=== PATIENT | female | born 1960 | race Caucasian/White ===

== ENCOUNTER 2016-09-07 12:47 | Inpatient (IN) ==
[2016-09-07] MEDS ORDERED: 0.9 % Sodium Chloride 500 ML IVC ONE (13:31)
[2016-09-07] MEDS ORDERED: methylPREDNISolone 125 MG/2 ML VIAL IVP ONE (13:31)
[2016-09-07] MEDS ORDERED: Ipratropium/Albuterol Neb 3 ML IH ONE (13:31)
[2016-09-07] MEDS ORDERED: GuaiFENesin/Codeine Oral Soln 5 ML UDC PO ONE (13:34)
[2016-09-07 14:18] LABS: Basophils # 0.1 K/mcL (0.0-0.2); Basophils % 0.5 %; Eosinophils % 0.4 %; Hematocrit 42.7 % (35.3-44.9); Hemoglobin 14.4 g/dL (11.5-15.4); Immature Granulocytes % 0.6 % (0-4); Lymphocytes # 1.7 K/mcL (0.6-4.6); Lymphocytes % 15.7 %; Mean Corpuscular HGB Conc 33.7 g/dL (31.6-35.5); Mean Corpuscular Hemoglobin 30.4 pg (28.0-33.3); Mean Corpuscular Volume 90.1 fL (83.0-100.0); Monocytes # 0.5 K/mcL (0.0-1.3); Monocytes % 4.9 %; Neutrophils # 8.6 K/mcL (1.6-8.9); Platelet Count 255 K/mcL (140-400); Red Blood Count 4.74 M/mcL (3.82-4.97); Red Cell Distribution Width 12.3 % (11.5-14.5); Segmented Neutrophils % 77.9 %
[2016-09-07] MEDS ORDERED: 0.9 % Sodium Chloride 500 ML ONE (14:19)
[2016-09-07 14:29] LABS: BUN/Creatinine Ratio 19 (6-26); Blood Urea Nitrogen 17 mg/dL (7-20); Calcium 9.5 mg/dL (8.6-10.8); Carbon Dioxide 28 mEq/L (19-29); Chloride 92 mEq/L (98-109); Glucose 460 mg/dL (70-99); Osmolality,Calculated 292 (280-300); Potassium 4.6 mEq/L (3.5-4.5); Sodium 130 mEq/L (136-145); eGFR For African Americans > 60 (> 60); eGFR For Non-African Americans > 60 (> 60)
[2016-09-07] MEDS ORDERED: Azithromycin 500 MG in D5% in Water 250 ML IVPB ONE (15:11)
[2016-09-07 15:17] LABS: Beta-Hydroxybutyric Acid 0.22 mmol/L (0.02-0.27)
--- NOTE | 2016-09-07 15:28 | Emergency Department Note ---
Disposition Clinical Impression: Community acquired pneumonia, Hyperglycemia Asthma with exacerbation Qualifiers: Asthma severity: unspecified severity Qualified Code(s): J45.901 - Unspecified asthma with (acute) exacerbation Disposition: Admitted As Inpatient Condition: Fair SOB HPI - General Chief Complaint: ED Shortness of Breath/Dyspnea Stated Complaint: SOB x2 weeks Time Seen by Provider: 09/07/16 13:26 Source: patient Mode of arrival: private vehicle Limitations: no limitations Nursing Notes Reviewed: Yes Vital Signs Reviewed: Yes - History of Present Illness Pt Subjective Complaint: shortness of breath, cough, pain with inspiration ( Pain with cough - right ribs) Onset (ago): week(s) (2) Context: recent illness Severity: moderate Consistency/Duration: intermittent, gradually worsening Improves with: other ("not coughing") Worsens with: movement, coughing Known history of: asthma, diabetes Associated symptoms: Reports: pain with inspiration, fever, cough, wheezing, sputum production. Denies: orthopnea, lower extremity pain, polyuria, polydipsia, parasthesias, palpitations, hemoptysis, diaphoresis, nausea/vomiting , syncope, abdominal pain, rash Treatment prior to arrival: bronchodilator Cough present: Yes Cough Description: Involuntary, Productive Cough Frequency: Intermittent Sputum production: Yes Sputum Amount: Small Sputum Color: Yellow - Related Data Home oxygen amount: none Home Medications Medication Instructions Recorded Confirmed Albuterol Sulfate [Ventolin Hfa] 2 puff IH Q4H PRN 09/07/16 09/07/16 Amlodipine [Norvasc] 5 mg PO DAILY 09/07/16 09/07/16 Cyclobenzaprine HCl 10 mg PO TID 09/07/16 09/07/16 [Cyclobenzaprine HCl] HYDROcodone/Acet 7.5/325 mg [[place] 1 tab PO TID PRN 09/07/16 09/07/16 7.5-325 mg] Losartan/Hydrochlorothiazide 1 tab PO DAILY 09/07/16 09/07/16 [Hyzaar 100-25 Tablet] Metformin HCl [Metformin HCl] 1,000 mg PO BID 09/07/16 09/07/16 Paroxetine HCl [Paroxetine] 40 mg PO DAILY 09/07/16 09/07/16 Ropinirole [Requip] 1 mg PO HS 09/07/16 09/07/16 Allergies Allergy/AdvReac Type Severity Reaction Status Date / Time cephalexin [From Keflex] Allergy Hives Verified 09/07/16 13:01 ciprofloxacin [From Cipro] Allergy Hives Verified 09/07/16 13:01 gabapentin Allergy Hives Verified 09/07/16 13:01 All systems ED: reviewed and negative except as stated. Constitutional: Reports: fever, weakness. Denies: chills ENT ED: Denies: ear pain, throat pain, congestion, dysphagia Cardiovascular: Reports: chest pain (right ribs - "under right breast"), dyspnea on exertion. Denies: palpitations, orthopnea, edema, syncope Respiratory: Reports: cough, dyspnea, wheezes, sputum production. Denies: hemoptysis, stridor Gastrointestinal: Denies: abdominal pain, nausea, vomiting, diarrhea Neurological: Denies: headache, weakness Hematological/Lymphatic: Denies: easy bleeding, easy bruising Past Medical History - Past Medical History Attestation: Yes The following information was validated with the patient. Source: patient Medical history: Reports: asthma, diabetes, hypertension Surgical history: Reports: non-contributory Psychiatric history: Reports: no psych history - Social History Smoking Status: Never smoker Alcohol use: Reports: none Drug use: Reports: none Physical Exam - General Limitations: no limitations General appearance: alert, in no apparent distress - Head Head exam: atraumatic, normocephalic, normal inspection - Eye Eye exam: Present: normal appearance, PERRL, EOMI. Absent: scleral icterus, conjunctival injection, periorbital swelling - ENT ENT exam: mucous membranes dry - Neck Neck exam: Present: normal inspection, full ROM, trachea midline. Absent: meningismus, lymphadenopathy - Chest Chest inspection: Present: normal inspection, symmetric chest wall rise, tenderness - Respiratory Respiratory exam: Present: wheezes, other (rhonchi - right base). Absent: respiratory distress, stridor, accessory muscle use, prolonged expiratory phase - Cardiovascular Cardiovascular exam: Present: regular rate, normal rhythm, normal heart sounds - Abdominal Exam Abdominal exam: Present: soft, Non-Tender - Extremities Exam Extremities exam: Present: normal inspection, full ROM. Absent: pedal edema - Neurological Exam Neurological exam: Present: alert, oriented X3, CN II-XII intact, normal gait - Psychiatric Psychiatric exam: Present: normal affect, normal mood - Skin Skin exam: Present: warm, dry, intact, normal color Course Course Narrative: Patient presents for evaluation of cough, congestion, shortness of breath and wheezing. She has been ill for two weeks. She saw her primary care provider last Friday and was started on an antibiotic. She cannot recall which antibiotic she was put on. She was also given steroids, but states that she vomited every time she took them. She had not improved so she went to urgent care and was given a prescription for a different antibiotic. Again, she cannot recall which antibiotic she was given, also more steroids and nausea medicine to prevent vomiting the steroids. She has had no improvement and now has significant right mid rib pain when she is coughing. She states that she has been trying not to cough and has been trying not to take deep breaths because of the pain in the right ribs. On exam, she is tachypneic and hypoxic. O2 sat is 90% on room air. Heart rate and blood pressure are normal. She is afebrile. Labs, x-rays and medications have been ordered. Patient's x-ray shows pneumonia. Blood sugar is elevated, most likely from the steroids and infectious process. She received a DuoNeb treatment which cleared the wheezes and improved airflow, however, her oxygen saturation is still 93-94 % on 2 L. We will admit for further evaluation and treatment. Case was discussed with Dr. Peck. He has seen the patient and agrees with the assessment and plan. - Consultations Consultation #1: Hospitalist has been paged Time: 15:38 Vital Signs Temperature 97.8 F 09/07/16 12:57 Pulse Rate 83 09/07/16 12:57 Respiratory Rate 20 09/07/16 12:57 Blood Pressure 116/77 09/07/16 12:57 O2 Sat by Pulse Oximetry 92 L 09/07/16 12:57 Temperature 97.8 F 09/07/16 13:06 Pulse Rate 78 09/07/16 16:30 Respiratory Rate 16 09/07/16 16:30 Blood Pressure 133/67 09/07/16 16:30 O2 Sat by Pulse Oximetry 93 L 09/07/16 16:30 Oxygen Delivery Oxygen Delivery Nasal Cannula Shortness of Breath/Dyspnea - Medical Records Medical records reviewed: Yes I reviewed the patient's medical records. - Lab Data Lab results reviewed: Yes I reviewed the patient's lab results. Lab results narrative: Laboratory Last Values WBC 11.1 K/mcL (4.3-11.1) 09/07/16 14:07 RBC 4.74 M/mcL (3.82-4.97) 09/07/16 14:07 Hgb 14.4 g/dL (11.5-15.4) 09/07/16 14:07 Hct 42.7 % (35.3-44.9) 09/07/16 14:07 MCV 90.1 fL (83.0-100.0) 09/07/16 14:07 MCH 30.4 pg (28.0-33.3) 09/07/16 14:07 MCHC 33.7 g/dL (31.6-35.5) 09/07/16 14:07 RDW 12.3 % (11.5-14.5) 09/07/16 14:07 Plt Count 255 K/mcL (140-400) 09/07/16 14:07 MPV 10.0 fL (9.4-12.4) 09/07/16 14:07 Immature Gran % 0.6 % (0-4) 09/07/16 14:07 Seg Neutrophils % 77.9 % 09/07/16 14:07 Lymphocytes % 15.7 % 09/07/16 14:07 Monocytes % 4.9 % 09/07/16 14:07 Eosinophils % 0.4 % 09/07/16 14:07 Basophils % 0.5 % 09/07/16 14:07 Neutrophils # 8.6 K/mcL (1.6-8.9) 09/07/16 14:07 Lymphocytes # 1.7 K/mcL (0.6-4.6) 09/07/16 14:07 Monocytes # 0.5 K/mcL (0.0-1.3) 09/07/16 14:07 Eosinophils # 0.0 K/mcL (0.0-0.6) 09/07/16 14:07 Basophils # 0.1 K/mcL (0.0-0.2) 09/07/16 14:07 Sodium 130 mEq/L (136-145) L 09/07/16 14:07 Potassium 4.6 mEq/L (3.5-4.5) H 09/07/16 14:07 Chloride 92 mEq/L (98-109) L 09/07/16 14:07 Carbon Dioxide 28 mEq/L (19-29) 09/07/16 14:07 BUN 17 mg/dL (7-20) 09/07/16 14:07 Creatinine 0.90 mg/dL (0.57-1.11) 09/07/16 14:07 Est GFR ( Amer) > 60 (> 60) 09/07/16 14:07 Est GFR (Non-Af Amer) > 60 (> 60) 09/07/16 14:07 BUN/Creatinine Ratio 19 (6-26) 09/07/16 14:07 Glucose 460 mg/dL (70-99) H 09/07/16 14:07 Calculated Osmolality 292 (280-300) 09/07/16 14:07 Calcium 9.5 mg/dL (8.6-10.8) 09/07/16 14:07 Beta-Hydroxybutyric Acd 0.22 mmol/L (0.02-0.27) 09/07/16 14:07 Result diagrams: 09/07/16 14:07 09/07/16 14:07 Lab Results 09/07/16 09/07/16 Range/Units 14:07 14:07 WBC 11.1 (4.3-11.1) K/mcL RBC 4.74 (3.82-4.97) M/mcL Hgb 14.4 (11.5-15.4) g/dL Hct 42.7 (35.3-44.9) % MCV 90.1 (83.0-100.0) fL MCH 30.4 (28.0-33.3) pg MCHC 33.7 (31.6-35.5) g/dL RDW 12.3 (11.5-14.5) % Plt Count 255 (140-400) K/mcL MPV 10.0 (9.4-12.4) fL Immature Gran % 0.6 (0-4) % Seg Neutrophils % 77.9 % Lymphocytes % 15.7 % Monocytes % 4.9 % Eosinophils % 0.4 % Basophils % 0.5 % Neutrophils # 8.6 (1.6-8.9) K/mcL Lymphocytes # 1.7 (0.6-4.6) K/mcL Monocytes # 0.5 (0.0-1.3) K/mcL Eosinophils # 0.0 (0.0-0.6) K/mcL Basophils # 0.1 (0.0-0.2) K/mcL Sodium 130 L (136-145) mEq/L Potassium 4.6 H (3.5-4.5) mEq/L Chloride 92 L (98-109) mEq/L Carbon Dioxide 28 (19-29) mEq/L BUN 17 (7-20) mg/dL Creatinine 0.90 (0.57-1.11) mg/dL Est GFR ( Amer) > 60 (> 60) Est GFR (Non-Af Amer) > 60 (> 60) BUN/Creatinine Ratio 19 (6-26) Glucose 460 H (70-99) mg/dL Calculated Osmolality 292 (280-300) Calcium 9.5 (8.6-10.8) mg/dL Beta-Hydroxybutyric Acd 0.22 (0.02-0.27) mmol/L - Radiology Data Radiology results reviewed: Yes I reviewed the patient's radiology results. Chest X-Ray 09/07/16 13:32 IMPRESSION: Bibasilar airspace disease, suggestive of pneumonia given patient history. D/ / Noah Monroe MD / Noah Monroe MD Interpreting Provider: Noah Monroe MD
--- NOTE | 2016-09-07 15:37 | Emergency Department Note ---
Disposition Clinical Impression: Community acquired pneumonia, Asthma with exacerbation, Hyperglycemia Disposition: Admitted As Inpatient Condition: Fair Referrals: NO,PCP [Non-Partnered Physician] - Forms: ED Satisfaction Letter SOB HPI - General Chief Complaint: ED Shortness of Breath/Dyspnea Stated Complaint: SOB x2 weeks Time Seen by Provider: 09/07/16 13:26 Source: patient Mode of arrival: private vehicle Limitations: no limitations Nursing Notes Reviewed: Yes Vital Signs Reviewed: Yes - History of Present Illness Severity: moderate Improves with: other ("not coughing") Worsens with: movement, coughing Associated symptoms: Reports: pain with inspiration, cough, wheezing, sputum production. Denies: orthopnea, lower extremity pain, polyuria, polydipsia, parasthesias, palpitations, hemoptysis, diaphoresis, nausea/vomiting, syncope, abdominal pain, rash Treatment prior to arrival: bronchodilator - Related Data Home oxygen amount: none Allergies Allergy/AdvReac Type Severity Reaction Status Date / Time cephalexin [From Keflex] Allergy Hives Verified 09/07/16 13:01 ciprofloxacin [From Cipro] Allergy Hives Verified 09/07/16 13:01 gabapentin Allergy Hives Verified 09/07/16 13:01 Constitutional: Reports: weakness. Denies: fever, chills ENT ED: Denies: ear pain, throat pain, congestion, dysphagia Cardiovascular: Reports: chest pain (right ribs - "under right breast"), dyspnea on exertion. Denies: palpitations, orthopnea, edema, syncope Respiratory: Reports: cough, dyspnea, wheezes, sputum production. Denies: hemoptysis, stridor Gastrointestinal: Denies: abdominal pain, nausea, vomiting, diarrhea Neurological: Denies: headache, weakness Hematological/Lymphatic: Denies: easy bleeding, easy bruising Past Medical History - Past Medical History Medical history: Reports: asthma, diabetes, hypertension Surgical history: Reports: non-contributory Psychiatric history: Reports: no psych history - Social History Smoking Status: Never smoker Alcohol use: Reports: none Drug use: Reports: none Physical Exam - General Limitations: no limitations General appearance: alert, in no apparent distress Course Vital Signs Temperature 97.8 F 09/07/16 12:57 Pulse Rate 83 09/07/16 12:57 Respiratory Rate 20 09/07/16 12:57 Blood Pressure 116/77 09/07/16 12:57 O2 Sat by Pulse Oximetry 92 L 09/07/16 12:57 Temperature 97.8 F 09/07/16 13:06 Pulse Rate 75 09/07/16 14:33 Respiratory Rate 16 09/07/16 14:51 Blood Pressure 130/73 09/07/16 14:33 O2 Sat by Pulse Oximetry 94 L 09/07/16 14:51 Oxygen Delivery Oxygen Delivery Nasal Cannula Shortness of Breath/Dyspnea - [facility] Narrative Medical decision making narrative: I examined this patient and my medical decision-making was reviewed with the CIS COORDINATOR/PA/Advanced Practice Nurse/Resident Physician. I agree with the documented findings, disposition and treatment plan as described except to the extent set forth below. Patient was evaluated by myself and Shira Martell the physician's visitor information assistant, patient has a history of reactive airway disease. She thinks she got pneumonia from work. She is in a health care setting. We will treat her with azithromycin as she has allergies to cephalexin and quinolones. She has not pneumonia on her chest x-ray getting breathing treatments and then will admit. She is in agreement with this plan. - Lab Data Result diagrams: 09/07/16 14:07 09/07/16 14:07 Lab Results 09/07/16 09/07/16 Range/Units 14:07 14:07 WBC 11.1 (4.3-11.1) K/mcL RBC 4.74 (3.82-4.97) M/mcL Hgb 14.4 (11.5-15.4) g/dL Hct 42.7 (35.3-44.9) % MCV 90.1 (83.0-100.0) fL MCH 30.4 (28.0-33.3) pg MCHC 33.7 (31.6-35.5) g/dL RDW 12.3 (11.5-14.5) % Plt Count 255 (140-400) K/mcL MPV 10.0 (9.4-12.4) fL Immature Gran % 0.6 (0-4) % Seg Neutrophils % 77.9 % Lymphocytes % 15.7 % Monocytes % 4.9 % Eosinophils % 0.4 % Basophils % 0.5 % Neutrophils # 8.6 (1.6-8.9) K/mcL Lymphocytes # 1.7 (0.6-4.6) K/mcL Monocytes # 0.5 (0.0-1.3) K/mcL Eosinophils # 0.0 (0.0-0.6) K/mcL Basophils # 0.1 (0.0-0.2) K/mcL Sodium 130 L (136-145) mEq/L Potassium 4.6 H (3.5-4.5) mEq/L Chloride 92 L (98-109) mEq/L Carbon Dioxide 28 (19-29) mEq/L BUN 17 (7-20) mg/dL Creatinine 0.90 (0.57-1.11) mg/dL Est GFR ( Amer) > 60 (> 60) Est GFR (Non-Af Amer) > 60 (> 60) BUN/Creatinine Ratio 19 (6-26) Glucose 460 H (70-99) mg/dL Calculated Osmolality 292 (280-300) Calcium 9.5 (8.6-10.8) mg/dL Beta-Hydroxybutyric Acd 0.22 (0.02-0.27) mmol/L
[2016-09-07] MEDS ORDERED: Naloxone 0.4 MG/ML INJ IVP PRN (18:34)
[2016-09-07] MEDS ORDERED: *HR* HYDROcodone/Acet 5/325 mg TABLET PO PRN (18:34)
[2016-09-07] MEDS ORDERED: Ondansetron ODT 4 MG TAB.RAPDIS SL PRN (18:34)
[2016-09-07] MEDS ORDERED: *HR* Dextrose 50 % in Water (Syg) 50 ML SYRINGE IVP PRN (18:38)
[2016-09-07] MEDS ORDERED: D5% in Water 1,000 ML IV PRN (18:38)
[2016-09-07] MEDS ORDERED: Dextrose Gel 15 GM PO PRN ×2 (18:38)
[2016-09-07] MEDS ORDERED: 0.9 % Sodium Chloride 1,000 ML IVC SCH (18:45)
[2016-09-07] MEDS ORDERED: Albuterol 2.5 MG/3 ML NEBULIZER IH PRN (18:54)
[2016-09-07] MEDS ORDERED: Azithromycin 500 MG in D5% in Water 250 ML IVPB SCH (19:00)
--- NOTE | 2016-09-07 19:06 | Internal Med History&Physical ---
Date of Encounter: 09/07/16 Time of Encounter: 18:54 Assessment and Plan (1) Community acquired pneumonia Current visit: Yes Status: Acute Patient with worsening cough and SOB. CXR with bibasilar opacities consistent with pneumonia. IV fluids 0.9NS at 75mL/hr Given Azithromycin 500mg IVPB in ED. start Doxycycline 100mg IV BID titrate O2 for O2 sat > 92% duoneb treatments QIDR albuterol nebulizer Q2hr PRN (2) Asthma with exacerbation Current visit: Yes Status: Acute Patient reports asthma and denies any diagnosis of COPD, though has a significant smoking history (75 pack-years, quit 11 years ago) She was satting 92% on room air on arrival, satting 92-94% on 2L. Titrate O2 for O2 sat > 92%. Bipap at night. duoneb treatments QIDR and Albuterol nebulizer Q2h PRN. She was not tolerating PO prednisone outpatient because it made her nauseous. Will have her take zofran with the prednisone to offset the nausea. Prednisone 20mg PO daily. Qualifiers: Asthma severity: unspecified severity Qualified Code(s): J45.901 - Unspecified asthma with (acute) exacerbation (3) Type 2 diabetes mellitus Current visit: Yes Status: Acute Blood sugar elevated to 460 in ED, she reported last A1c in 10s Ordered accucheck on arrival to floor as well as [facility] diabetic diet Will start basal insulin at 10u this evening. sliding scale correction dose insulin hypoglycemic protocol Qualifiers: Diabetes mellitus complication status: without complication Diabetes mellitus residential insulin use: without residential use Qualified Code(s): E11.9 - Type 2 diabetes mellitus without complications (4) Hyponatremia Current visit: Yes Status: Acute Sodium 130. IV fluids for hydration. Recheck with AM labs (5) Hypertension Current visit: Yes Status: Acute continue home doses of lisinopril/HCTZ, Qualifiers: Hypertension type: essential hypertension Qualified Code(s): I10 - Essential (primary) hypertension (6) DVT prophylaxis Current visit: Yes Status: Acute encourage ambulation anti-embolic stockings 5,000u Heparin SQ BID Internal Medicine - H&P: HPI Chief complaint: cough, shortness of breath Admitted From: Emergency Dept Plans for Post Hospital Care: Home History of present illness: Ms. Chisholm is a 55 year old female with history of asthma, and type 2 diabetes who presented to the ED today with complaint of productive cough and shortness of breath. She reports this has been going on for 2 weeks. She has visited her PCP and an urgent care and was prescribed antibiotics, oral steroids and breathing treatments, but reports the steroids would make her nauseous. Symptoms have not resolved and were getting worse. She reports she has pain in her right ribs from coughing. Cough has been productive of green and white sputum. She denies any fever, headache, body aches, vomiting, abdominal pain or diarrhea. Her evaluation in the ED was significant for CXR which showed bibasilar opacities suggestive of pneumonia. She was satting 92% on room air on arrival. She was given duoneb treatment, IV fluids, solumedrol and started on Azithromycin. Her glucose is noted to be elevated at 460, she is only on metformin at home for her Type 2 diabetes. On exam, she is alert and oriented, appears comfortable. Lungs with mild expiratory wheezes. Heart with regular rate and rhythm. Mild tenderness over right lateral ribs. Past Med Surg Social Fam HX - Past Medical History Medical history: asthma, diabetes, hypertension Psychiatric history: no psych history - Past Surgical History Surgical History: no surgical history - Social History Smoking Status: Former smoker (75 pack year history) Alcohol use: none Drug use: none Current living situation: Home, With Family - Family History Mother Living Status: Cause of : COPD Father Living Status: Cause of : COPD Internal Medicine - H&P: Meds Albuterol Sulfate [Ventolin Hfa] 2 puff IH Q4H PRN 09/07/16 [History] Amlodipine [Norvasc] 5 mg PO DAILY 09/07/16 [History] Cyclobenzaprine HCl [Cyclobenzaprine HCl] 10 mg PO TID 09/07/16 [History] HYDROcodone/Acet 7.5/325 mg [[place] 7.5-325 mg] 1 tab PO TID PRN 09/07/16 [ History] Losartan/Hydrochlorothiazide [Hyzaar 100-25 Tablet] 1 tab PO DAILY 09/07/16 [ History] Metformin HCl [Metformin HCl] 1,000 mg PO BID 09/07/16 [History] Paroxetine HCl [Paroxetine] 40 mg PO DAILY 09/07/16 [History] Ropinirole [Requip] 1 mg PO HS 09/07/16 [History] Allergies cephalexin [From Keflex] Allergy (Verified 09/07/16 13:01) Hives ciprofloxacin [From Cipro] Allergy (Verified 09/07/16 13:01) Hives gabapentin Allergy (Verified 09/07/16 13:01) Hives All Systems PM: A 10-system review of systems was performed and is negative for pertinent findings except as documented above in the HPI. - Constitutional Constitutional: chills, no fever(s), no night sweats - EENT Eyes: no change in vision, no discharge, no pain, no photophobia Nose, mouth and throat: no dysphagia, no nasal discharge, no neck pain, no sore throat - Cardiovascular Cardiovascular ROS IM: dyspnea, no chest pain, no diaphoresis, no lightheadedness, no palpitations, no syncope - Respiratory Respiratory: cough, dyspnea, wheezing, change in phlegm color, pain with cough - Gastrointestinal Gastrointestinal: no abdominal pain, no diarrhea, no hematemesis, no hematochezia, no melena, no nausea, no vomiting - Genitourinary Genitourinary: no change in urinary stream, no dysuria, no flank pain, no hematuria - Musculoskeletal Musculoskeletal ROS IM: no numbness, no tingling - Integumentary Integumentary IM: no rash, no unusual bruising - Neurological Neurological ROS: no confusion, no convulsions, no focal weakness, no numbness, no tingling, no tremor(s) - Hematologic/Lymphatic Hematologic/Lymphatic: no easy bruising - Constitutional Vitals: Temp Pulse Resp BP Pulse Ox 97.8 F 78 16 133/67 93 L 09/07/16 13:06 09/07/16 16:30 09/07/16 17:44 09/07/16 17:44 09/07/16 16:30 General appearance: Present: A&O X 3, morbidly obese, no acute distress - Head Head exam: Present: atraumatic, normocephalic - Eye Eye exam: Present: PERRL, conjuntiva pink, sclera anicteric Pupils: Present: PERRL - Neck Neck exam general surgery: Present: supple, trachea midline. Absent: lymphadenopathy - Respiratory Respiratory exam: Present: wheezes (bilateral expiratory). Absent: accessory muscle use, rales, rhonchi - Cardiovascular Cardiovascular exam: Present: RRR, +S1, +S2. Absent: diastolic murmur, gallop, rubs, systolic murmur - GI/Abdominal GI/Abdominal exam: Present: normal bowel sounds, soft, no peritoneal signs. Absent: distended, tenderness - Extremities Exam Extremities exam: Present: warm, radial pulses palpable and symetrical. Absent : calf tenderness, cyanotic, pedal edema - Neurological Exam Neurological exam: Present: CN II-XII intact, oriented X3, no focal deficits. Absent: facial droop, speech deficit - Skin Skin exam: Present: dry, intact Internal Med - H&P Results - Labs CBC & Chem 7: 09/07/16 14:07 09/07/16 14:07
[2016-09-07] MEDS: GuaiFENesin/Dextromethorphan TABLET PO SCH (20:32)
[2016-09-07] MEDS: rOPINIRole 1 MG TABLET PO SCH (20:32)
[2016-09-07 20:38] LABS: Hemoglobin A1C 10.2 %
[2016-09-07] MEDS ORDERED: Insulin LISPRO 300 UNITS/3 ML VIAL SQ ONE ×2 (20:41→22:50)
[2016-09-07] MEDS: Ipratropium/Albuterol Neb 3 ML IH SCH ×2 (20:49→23:57)
--- NOTE | 2016-09-07 21:17 | Event Note ---
Date of Encounter: 09/07/16 Time of Encounter: 21:14 Patients and examined. Presents with productive cough for 2 weeks failed to outpatient courses of antibiotics x-ray shows questionable pneumonia. She is afebrile without leukocytosis. When Barbara and culture keep the patient on IV doxycycline because of multiple antibiotic allergies. Uncontrolled diabetes hemoglobin A1 C's 10. Advised patient that she may need insulin she has been on it before. Will start long-acting sliding scale insulin in hospital. Gentle hydration. Expected discharge from the hospital in 48 hours.
[2016-09-07] MEDS ORDERED: Insulin DETEMIR 100 UNIT/ML X5UNITS SQ SCH (21:30)
[2016-09-07] MEDS: Doxycycline 100 MG in 0.9 % Sodium Chloride Mini Bag 100 ML IVPB SCH (22:14)
[2016-09-08] MEDS ORDERED: Insulin LISPRO 300 UNITS/3 ML VIAL SQ ONE ×3 (00:31→18:44)
[2016-09-08] MEDS: Ipratropium/Albuterol Neb 3 ML IH SCH ×4 (04:11→22:39)
[2016-09-08] MEDS: Acetaminophen 325 MG TABLET PO PRN (04:13)
[2016-09-08 04:22] LABS: Basophils % 0.1 %; Hematocrit 41.8 % (35.3-44.9); Hemoglobin 13.9 g/dL (11.5-15.4); Immature Granulocytes % 0.8 % (0-4); Lymphocytes # 1.4 K/mcL (0.6-4.6); Lymphocytes % 11.5 %; Mean Corpuscular HGB Conc 33.3 g/dL (31.6-35.5); Mean Corpuscular Hemoglobin 29.7 pg (28.0-33.3); Mean Corpuscular Volume 89.3 fL (83.0-100.0); Mean Platelet Volume 10.2 fL (9.4-12.4); Monocytes # 0.3 K/mcL (0.0-1.3); Monocytes % 2.5 %; Neutrophils # 10.6 K/mcL (1.6-8.9); Platelet Count 277 K/mcL (140-400); Red Blood Count 4.68 M/mcL (3.82-4.97); Red Cell Distribution Width 12.3 % (11.5-14.5); Segmented Neutrophils % 85.1 %
[2016-09-08 04:41] LABS: BUN/Creatinine Ratio 22 (6-26); Blood Urea Nitrogen 20 mg/dL (7-20); Calcium 9.1 mg/dL (8.6-10.8); Carbon Dioxide 26 mEq/L (19-29); Chloride 97 mEq/L (98-109); Glucose 303 mg/dL (70-99); Osmolality,Calculated 292 (280-300); Potassium 4.1 mEq/L (3.5-4.5); Sodium 134 mEq/L (136-145); eGFR For African Americans > 60 (> 60); eGFR For Non-African Americans > 60 (> 60)
[2016-09-08] MEDS: *HR* Enoxaparin 40 MG/0.4 ML SYRINGE SQ SCH (05:52)
[2016-09-08] MEDS ORDERED: Insulin LISPRO 300 UNITS/3 ML VIAL SQ SCH ×4 (07:30→21:00)
[2016-09-08] MEDS: GuaiFENesin/Dextromethorphan TABLET PO SCH ×2 (08:09→19:47)
[2016-09-08] MEDS: Losartan/HCTZ 50-12.5 TABLET PO SCH (08:09)
[2016-09-08] MEDS: amLODIPine 5 MG TABLET PO SCH (08:10)
[2016-09-08] MEDS: Doxycycline 100 MG in 0.9 % Sodium Chloride Mini Bag 100 ML IVPB SCH ×2 (08:10→22:07)
[2016-09-08] MEDS ORDERED: predniSONE 20 MG TABLET PO SCH (09:00)
[2016-09-08 11:09] LABS: Magnesium 1.6 mg/dL (1.6-2.6); Phosphorous 2.6 mg/dL (2.3-4.7)
[2016-09-08] MEDS: MethylPREDNISolone 40 MG/ML VIAL IVP SCH (12:41)
[2016-09-08] MEDS: Insulin LISPRO 300 UNITS/3 ML VIAL SQ SCH ×3 (12:41→21:48)
--- NOTE | 2016-09-08 12:58 | Internal Med Progress Note ---
Date of Encounter: 09/08/16 Time of Encounter: 09:30 - Assessment and plan (1) Asthma with exacerbation Current Visit: Yes Status: Acute Assessment and plan: Continue aerosol treatment, solumedrol IV. Continue current antibiotic Qualifiers: Asthma severity: unspecified severity Qualified Code(s): J45.901 - Unspecified asthma with (acute) exacerbation Code(s): J45.901 - Unspecified asthma with (acute) exacerbation SNOMED Code(s) : 864360546 (2) Community acquired pneumonia Current Visit: Yes Status: Acute Assessment and plan: Continue current antibiotic add Mucinex Code(s): J18.9 - Pneumonia, unspecified organism SNOMED Code(s): 314815345 (3) Type 2 diabetes mellitus Current Visit: Yes Status: Acute Assessment and plan: Increase Lantus which is insulin sliding scale to high scale Qualifiers: Diabetes mellitus complication status: without complication Diabetes mellitus care home insulin use: without tank terminal gauger use Qualified Code(s): E11.9 - Type 2 diabetes mellitus without complications Code(s): E11.9 - Type 2 diabetes mellitus without complications SNOMED Code(s) : 98181481 (4) Hypoxemia Current Visit: Yes Status: Acute Assessment and plan: Possible secondary to asthma extubation and pneumonia cannot rule out volume overload or diastolic heart failure. Cardiac echo done recently checked BNP discontinual IV fluid, add 1 dose of Lasix Code(s): R09.02 - Hypoxemia SNOMED Code(s): 203004000 - Subjective Interval history: Patient still complained of shortness of breath, productive cough with clear sputum. Patient denies any orthopnea or paroxysmal nocturnal dyspnea. Patient denies any recent weight gain - Constitutional Vitals: Temp Pulse Resp BP Pulse Ox 97.9 F 86 16 136/71 94 L 09/08/16 11:54 09/08/16 11:54 09/08/16 11:54 09/08/16 11:54 09/08/16 11:54 General appearance: Present: A&O X 3, morbidly obese, no acute distress - Head Head exam: Present: atraumatic, normocephalic - Neck Neck exam general surgery: Present: supple, trachea midline. Absent: lymphadenopathy - Respiratory Respiratory exam: Present: decreased breath sounds (More at bilateral lung bases ), prolonged expiratory phase. Absent: accessory muscle use, rales, rhonchi, wheezes - Cardiovascular Cardiovascular exam: Present: RRR, +S1, +S2. Absent: diastolic murmur, gallop, rubs, systolic murmur - GI/Abdominal GI/Abdominal exam: Present: diminished bowel sounds, normal bowel sounds, soft, no peritoneal signs. Absent: tenderness - Extremities Exam Extremities exam: Present: warm, radial pulses palpable and symetrical. Absent : calf tenderness, cyanotic, pedal edema - Skin Skin exam: Present: dry, intact Internal Medicine: Result - Labs CBC & Chem 7: 09/08/16 02:51 09/08/16 02:51 Labs: Short CBC 09/08/16 Range/Units 02:51 WBC 12.5 H (4.3-11.1) K/mcL Hgb 13.9 (11.5-15.4) g/dL Hct 41.8 (35.3-44.9) % Plt Count 277 (140-400) K/mcL Neutrophils # 10.6 H (1.6-8.9) K/mcL BMP 09/08/16 02:51 Sodium 134 L Potassium 4.1 Chloride 97 L Carbon Dioxide 26 BUN 20 Creatinine 0.89 Glucose 303 H Calcium 9.1 Consult Discharge Plan - Plan Referrals: Sherry Weaver, HIGH SCHOOL VICE PRINCIPAL [Primary Care Provider] -
[2016-09-08] MEDS ORDERED: Furosemide 40 MG/4 ML VIAL IVP ONE (13:11)
[2016-09-08] MEDS ORDERED: Azithromycin 500 MG in D5% in Water 250 ML IVPB SCH (16:00)
[2016-09-08] MEDS ORDERED: Insulin Human Regular 10 UNIT in 0.9 % Sodium Chloride 10 ML IV ONE ×2 (16:42→19:06)
[2016-09-08] MEDS ORDERED: Fluconazole 100 MG TABLET PO ONE (16:51)
[2016-09-08] MEDS ORDERED: Insulin Regular, Human 100 UNIT/ML IV ONE (18:45)
[2016-09-08] MEDS: rOPINIRole 1 MG TABLET PO SCH (19:47)
[2016-09-08] MEDS: Insulin DETEMIR 100 UNIT/ML X5UNITS SQ SCH (20:51)
[2016-09-09] MEDS: Insulin LISPRO 300 UNITS/3 ML VIAL SQ SCH ×3 (00:25→21:46)
[2016-09-09] MEDS: Ipratropium/Albuterol Neb 3 ML IH SCH ×4 (04:05→22:37)
[2016-09-09] MEDS: *HR* Enoxaparin 40 MG/0.4 ML SYRINGE SQ SCH (06:32)
[2016-09-09] MEDS: Losartan/HCTZ 50-12.5 TABLET PO SCH (09:08)
[2016-09-09] MEDS: amLODIPine 5 MG TABLET PO SCH (09:08)
[2016-09-09] MEDS: MethylPREDNISolone 40 MG/ML VIAL IVP SCH (09:09)
[2016-09-09] MEDS: Doxycycline 100 MG in 0.9 % Sodium Chloride Mini Bag 100 ML IVPB SCH ×2 (09:09→21:47)
[2016-09-09] MEDS: GuaiFENesin/Dextromethorphan TABLET PO SCH ×2 (09:09→21:47)
[2016-09-09] MEDS ORDERED: Insulin LISPRO 300 UNITS/3 ML VIAL SQ STA (11:50)
--- NOTE | 2016-09-09 14:10 | Electrocardiograph Report ---
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
[2016-09-09] MEDS ORDERED: Furosemide 40 MG/4 ML VIAL IVP ONE (15:36)
[2016-09-09] MEDS ORDERED: Insulin LISPRO 300 UNITS/3 ML VIAL SQ SCH ×2 (16:00→18:28)
--- NOTE | 2016-09-09 18:18 | Internal Med Progress Note ---
Date of Encounter: 09/09/16 Time of Encounter: 18:00 - Assessment and plan (1) Asthma with exacerbation Current Visit: Yes Status: Acute Assessment and plan: Continue aerosol treatment, solumedrol IV. Continue current antibiotic. Discussed with staff home oxygen evaluation. Qualifiers: Asthma severity: unspecified severity Qualified Code(s): J45.901 - Unspecified asthma with (acute) exacerbation Code(s): J45.901 - Unspecified asthma with (acute) exacerbation SNOMED Code(s) : 157212904 (2) Community acquired pneumonia Current Visit: Yes Status: Acute Assessment and plan: Continue current antibiotic Mucinex Code(s): J18.9 - Pneumonia, unspecified organism SNOMED Code(s): 016197423 (3) Type 2 diabetes mellitus Current Visit: Yes Status: Acute Assessment and plan: Increase Lantus again, insulin sliding scale q4 H Qualifiers: Diabetes mellitus complication status: without complication 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 Cardiac echo done recently , add another dose of lasix , awaiting recent cardiac echo Code(s): R09.02 - Hypoxemia SNOMED Code(s): 288573474 - Subjective Interval history: Patient is complaining of sob, dyspnea on mild exertion. blood sugar is still persistently elevated, extremity swelling - Constitutional Vitals: Temp Pulse Resp BP Pulse Ox 98.2 F 69 18 120/72 97 09/09/16 15:21 09/09/16 15:21 09/09/16 16:02 09/09/16 15:21 09/09/16 16:02 General appearance: Present: A&O X 3, morbidly obese, no acute distress - Head Head exam: Present: atraumatic, normocephalic - Respiratory Respiratory exam: Present: decreased breath sounds, tachypnea. Absent: accessory muscle use, rales, rhonchi, wheezes - Cardiovascular Cardiovascular exam: Present: RRR, +S1, +S2. Absent: diastolic murmur, gallop, rubs, systolic murmur - GI/Abdominal GI/Abdominal exam: Present: normal bowel sounds, soft, no peritoneal signs. Absent: tenderness - Extremities Exam Extremities exam: Present: pedal edema (+1 to2 bilateral lower edema ), warm, radial pulses palpable and symetrical. Absent: calf tenderness, cyanotic - Skin Skin exam: Present: dry, intact Internal Medicine: Result - Labs CBC & Chem 7: 09/08/16 02:51 09/08/16 02:51 - Impressions Abnormal Lab Results 09/08/16 09/08/16 09/08/16 18:33 20:59 21:47 POC Glucose 590 H* 433 H* 372 H 09/08/16 09/09/16 09/09/16 23:57 02:22 07:58 POC Glucose 307 H 204 H 219 H 09/09/16 11:15 POC Glucose 357 H Intake & Output 09/06/16 09/07/16 09/08/16 09/09/16 23:59 23:59 23:59 23:59 Intake Total 850 / 850 2760 / 2760 1500 / 1500 Output Total 3100 / 3100 2650 / 2650 Balance 850 / 850 -340 / -340 -1150 / -1150 Weight 127.006 kg 126.6 kg 127.286 kg Consult Discharge Plan - Plan Referrals: Sherry Weaver, TRAFFIC ASSISTANT [Primary Care Provider] -
[2016-09-09] MEDS: Insulin DETEMIR 100 UNIT/ML X5UNITS SQ SCH (21:46)
[2016-09-09] MEDS: rOPINIRole 1 MG TABLET PO SCH (21:47)
[2016-09-10] MEDS: Ipratropium/Albuterol Neb 3 ML IH SCH ×4 (04:17→22:27)
[2016-09-10 05:04] LABS: Basophils % 0.2 %; Eosinophils % 0.2 %; Hematocrit 40.8 % (35.3-44.9); Hemoglobin 13.6 g/dL (11.5-15.4); Immature Granulocytes % 0.9 % (0-4); Lymphocytes # 2.9 K/mcL (0.6-4.6); Lymphocytes % 23.2 %; Mean Corpuscular HGB Conc 33.3 g/dL (31.6-35.5); Mean Corpuscular Volume 89.9 fL (83.0-100.0); Mean Platelet Volume 10.3 fL (9.4-12.4); Monocytes # 1.1 K/mcL (0.0-1.3); Monocytes % 8.5 %; Neutrophils # 8.5 K/mcL (1.6-8.9); Platelet Count 256 K/mcL (140-400); Red Blood Count 4.54 M/mcL (3.82-4.97); Red Cell Distribution Width 12.5 % (11.5-14.5)
[2016-09-10 05:26] LABS: Albumin 3.2 g/dL (3.5-5.0); BUN/Creatinine Ratio 28 (6-26); Blood Urea Nitrogen 21 mg/dL (7-20); Calcium 8.9 mg/dL (8.6-10.8); Carbon Dioxide 26 mEq/L (19-29); Chloride 98 mEq/L (98-109); Glucose 206 mg/dL (70-99); Magnesium 1.8 mg/dL (1.6-2.6); Osmolality,Calculated 291 (280-300); Phosphorous 3.5 mg/dL (2.3-4.7); Sodium 136 mEq/L (136-145); eGFR For African Americans > 60 (> 60); eGFR For Non-African Americans > 60 (> 60)
[2016-09-10 05:28] LABS: Potassium 3.7 mEq/L (3.5-4.5)
[2016-09-10] MEDS: *HR* Enoxaparin 40 MG/0.4 ML SYRINGE SQ SCH (06:01)
[2016-09-10] MEDS: Losartan/HCTZ 50-12.5 TABLET PO SCH (07:59)
[2016-09-10] MEDS: GuaiFENesin/Dextromethorphan TABLET PO SCH ×2 (07:59→20:55)
[2016-09-10] MEDS: MethylPREDNISolone 40 MG/ML VIAL IVP SCH (08:00)
[2016-09-10] MEDS: amLODIPine 5 MG TABLET PO SCH (08:00)
[2016-09-10] MEDS: Insulin LISPRO 300 UNITS/3 ML VIAL SQ SCH ×4 (08:07→22:31)
[2016-09-10] MEDS: Doxycycline 100 MG in 0.9 % Sodium Chloride Mini Bag 100 ML IVPB SCH ×2 (11:43→20:55)
--- NOTE | 2016-09-10 12:17 | ECHO - Doppler Report ---
Echocardiogram Name: Mari Chisholm Date of Study: 09/10/2016 Date: 1960 Ht: 69.0 in Medical Record#: [id number] Age: 55 Wt: 289.0 lb Gender: Female BSA: 2.42 Order #: [id number] Location: [facility] Room #: 3B14 Reading Physician: Lorenzo Du MD, [facility] Zinc Plater: Kristin Doll RDCS, RVT Ordering Physician: Umu Guillaume MD Primary Physician: Sherry Weaver CNP Indications: Possible Diastolic Heart Failure Impressions: Normal left ventricular size and systolic function, LVEF 65%. Mild left ventricular diastolic dysfunction. Normal right ventricular structure and function. Mildly dilated left atrium. No significant valvular dysfunction. Unable to estimate RVSP due to lack of TR jet. Left Ventricular Wall Motion: Rest Echo Findings All wall segments showed normal motion. Findings: Study Quality * Technically adequate exam. ECG Findings * Normal sinus rhythm. Left Ventricle * Normal left ventricular size and systolic function, LVEF 65%. * Normal LV chamber size, wall thickness and function. * Mild left ventricular diastolic dysfunction. Right Ventricle * Normal right ventricular structure and function. Left Atrium * Mildly dilated left atrium. Right Atrium * Normal right atrial size. Aorta * Normally sized aortic root. Pericardium * There is no pericardial effusion present. IVC * The IVC is not well evaluated. Aortic Valve * Trileaflet aortic valve. * Mildly sclerotic aortic valve leaflets. * Normal aortic valve function. Mitral Valve * Mild mitral annular calcification * Normal mitral valve function. Tricuspid Valve * Tricuspid valve not well visualized. * Normal tricuspid valve function. * Unable to estimate RVSP due to lack of TR jet. Pulmonic Valve * Pulmonic valve not well visualized. * Normal pulmonic valve function. History Hypertension Diabetes Measurements: BP: 138/ 79 2D Normal Values RVIDd: 3.40 cm IVSd: .80 cm 0.6 - 1.0 cm LVIDd: 5.20 cm 3.7 - 5.6 cm LVPWd: .80 cm 0.6 - 1.1 cm LVIDs: 3.10 cm 1.5 - 3.6 cm AO: 3.20 cm < 4.0 cm LA volume: 80 Mitral Valve Peak E:.86 m/sec Peak A:1.19 m/sec E/A Ratio:0.7 Updated by Lorenzo Du MD, [facility] on 09/10/2016 12:13:23 PM electronically signed on 09/10/2016 12:14:34 PM with status of Final Wall Motion Milner: 1=Normal, 2=Hypokinesis, 3=Akinesis, 4=Dyskinesis, 5=Aneurysmal, 6=Hyperkinetic, X=Not Visualized (Blank)=Missing
[2016-09-10] MEDS: Acetaminophen 325 MG TABLET PO PRN (17:22)
--- NOTE | 2016-09-10 17:46 | Internal Med Progress Note ---
Date of Encounter: 09/10/16 Time of Encounter: 17:00 - Assessment and plan (1) Asthma with exacerbation Current Visit: Yes Status: Acute Assessment and plan: Continue aerosol treatment, solumedrol IV. Continue current antibiotic. Discussed with pulmonary may need bronchoscopy nothing by mouth after midnight with her findings on x-ray Basilar airspace disease and/or atelectasis with persistent apparent total collapse of the right middle lobe Qualifiers: Asthma severity: unspecified severity Qualified Code(s): J45.901 - Unspecified asthma with (acute) exacerbation Code(s): J45.901 - Unspecified asthma with (acute) exacerbation SNOMED Code(s) : 640334778 (2) Community acquired pneumonia Current Visit: Yes Status: Acute Code(s): J18.9 - Pneumonia, unspecified organism SNOMED Code(s): 221488287 (3) Type 2 diabetes mellitus Current Visit: Yes Status: Acute Assessment and plan: Increase Lantus again, increase insulin sliding scale . 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 term care social worker insulin use: without nursing home use Qualified Code(s): E11.9 - Type 2 diabetes mellitus without complications Code(s): E11.9 - Type 2 diabetes mellitus without complications SNOMED Code(s) : 91155062 (4) Hypoxemia Current Visit: Yes Status: Acute Code(s): R09.02 - Hypoxemia SNOMED Code(s ): 678574027 - Time Spent With Patient 25 - 35 minutes - Subjective Interval history: Patient complains of shortness of breath better then yesterday - Constitutional Vitals: Temp Pulse Resp BP Pulse Ox 98.0 F 67 16 118/71 96 09/10/16 15:30 09/10/16 15:30 09/10/16 15:30 09/10/16 15:30 09/10/16 15:30 General appearance: Present: A&O X 3, morbidly obese, no acute distress - Head Head exam: Present: atraumatic, normocephalic - Respiratory Respiratory exam: Present: decreased breath sounds, CTAB. Absent: accessory muscle use, rales, rhonchi, wheezes - GI/Abdominal GI/Abdominal exam: Present: normal bowel sounds, soft, no peritoneal signs. Absent: distended, tenderness - Extremities Exam Extremities exam: Present: warm, radial pulses palpable and symetrical. Absent : calf tenderness, cyanotic, pedal edema - Skin Skin exam: Present: dry, intact Internal Medicine: Result - Labs CBC & Chem 7: 09/10/16 03:38 09/10/16 03:38 Labs: Short CBC 09/10/16 Range/Units 03:38 WBC 12.7 H (4.3-11.1) K/mcL Hgb 13.6 (11.5-15.4) g/dL Hct 40.8 (35.3-44.9) % Plt Count 256 (140-400) K/mcL Neutrophils # 8.5 (1.6-8.9) K/mcL BMP 09/10/16 03:38 Sodium 136 Potassium 3.7 Chloride 98 Carbon Dioxide 26 BUN 21 H Creatinine 0.74 Glucose 206 H Calcium 8.9 Liver Function 09/10/16 Range/Units 03:38 Albumin 3.2 L (3.5-5.0) g/dL - Impressions Impressions Chest X-Ray 09/10/16 18:29 IMPRESSION: Basilar airspace disease and/or atelectasis with persistent apparent total collapse of the right middle lobe. hysical progression - VTE Documentation of Mechanical Device: Graduated compression elastic hosiery Consult Discharge Plan - Plan Referrals: Sherry Weaver, SHAHID [Primary Care Provider] -
[2016-09-10] MEDS ORDERED: Insulin Human Regular 10 UNIT in 0.9 % Sodium Chloride 10 ML IV ONE (17:51)
[2016-09-10] MEDS: rOPINIRole 1 MG TABLET PO SCH (20:55)
[2016-09-10] MEDS ORDERED: Insulin DETEMIR 100 UNIT/ML X5UNITS SQ SCH (21:00)
[2016-09-11] MEDS: Ipratropium/Albuterol Neb 3 ML IH SCH ×3 (04:12→15:52)
[2016-09-11] MEDS: *HR* Enoxaparin 40 MG/0.4 ML SYRINGE SQ SCH (07:03)
[2016-09-11] MEDS: Insulin LISPRO 300 UNITS/3 ML VIAL SQ SCH ×4 (07:38→21:17)
[2016-09-11] MEDS: MethylPREDNISolone 40 MG/ML VIAL IVP SCH (07:41)
[2016-09-11] MEDS ORDERED: Albuterol 2.5 MG/3 ML NEBULIZER IH ONE (07:52)
[2016-09-11] MEDS ORDERED: Lidocaine Viscous Oral Soln 15 ML SOLUTION MM ONE (07:52)
[2016-09-11] MEDS ORDERED: *HR* FentaNYL (PF) 100 MCG/2 ML VIAL IVP PRN (07:52)
[2016-09-11] MEDS ORDERED: *HR* EPINEPHrine 1 MG/10 ML SYRINGE INTRATRACH PRN (07:52)
[2016-09-11] MEDS ORDERED: *HR* Midazolam HCl 5 MG/5 ML VIAL IVP PRN (07:52)
[2016-09-11] MEDS ORDERED: Tetracaine/Benzocaine/Butamben 200MG/SPRAY (100SPY/BOT) MM ONE (07:52)
--- NOTE | 2016-09-11 07:52 | Pre-Sedation Evaluation ---
Pre-sedation evaluation - Pre-sedation checklist Date of procedure: 09/11/16 Procedure: Bronchoscopy Recent Vitals: Last Vital Signs Temp 98.2 F 09/11/16 06:51 Pulse 70 09/11/16 06:51 Resp 18 09/11/16 06:51 BP 140/87 09/11/16 06:51 Pulse Ox 98 09/11/16 06:51 H&P (including ROS) documented in medical record: Yes Previous reaction to sedatives/anesthetics: No Dietary Status: NPO after Midnight Dentition: dentures removed Possible difficult airway: No ASA Classification *see protocol: CLASS II-Mild systemic disease Plan of Care: Pt appropriate candidate for procedure/moderate/conscious sedation , Risks/benefits of procedure/sedation discussed w/ patient/family
[2016-09-11] MEDS ORDERED: 0.9 % Sodium Chloride 1,000 ML IVC SCH (08:00)
[2016-09-11] MEDS ORDERED: *HR* Midazolam HCl 5 MG/5 ML VIAL IVP ONE (08:10)
[2016-09-11] MEDS ORDERED: *HR* FentaNYL (PF) 100 MCG/2 ML VIAL ONE (08:11)
[2016-09-11] MEDS ORDERED: Lidocaine Viscous Oral Soln 15 ML SOLUTION ONE (08:11)
[2016-09-11 09:39] LABS: Source of Body Fluid RML BAL
--- NOTE | 2016-09-11 09:47 | Internal Med Progress Note ---
Date of Encounter: 09/11/16 Time of Encounter: 09:30 - Assessment and plan (1) Asthma with exacerbation Current Visit: Yes Status: Acute Assessment and plan: Continue aerosol treatment, solumedrol IV. Continue current antibiotic. bronchoscopy done today awaiting the final result, I appreciate pulmonary input Qualifiers: Asthma severity: unspecified severity Qualified Code(s): J45.901 - Unspecified asthma with (acute) exacerbation Code(s): J45.901 - Unspecified asthma with (acute) exacerbation SNOMED Code(s) : 413842936 (2) Community acquired pneumonia Current Visit: Yes Status: Acute Assessment and plan: Continue current antibiotics , awaiting bronchoscopy result Code(s): J18.9 - Pneumonia, unspecified organism SNOMED Code(s): 535562536 (3) Type 2 diabetes mellitus Current Visit: Yes Status: Acute Assessment and plan: It Is still poor bcontroll , Ihad long discussion with counseling patient about lifestyle modification ,staff stated that she is eating many candies. I explained long-term complication micro-and macrovascular complication. 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 Cardiac Echo reviewed, mild diastolic dysfunction Code(s): R09.02 - Hypoxemia SNOMED Code(s): 640306783 - Subjective Interval history: Patient complains of chest wall pain get worse with moving or taking deep breath. Shortness of breath is better - Constitutional Vitals: Temp Pulse Resp BP Pulse Ox 98.0 F 80 18 156/76 98 09/11/16 08:42 09/11/16 08:42 09/11/16 08:42 09/11/16 08:42 09/11/16 08:42 General appearance: Present: morbidly obese, no acute distress - Neck Neck exam general surgery: Present: supple, trachea midline. Absent: lymphadenopathy - Respiratory Respiratory exam: Present: decreased breath sounds (Marked improvement compared to yesterday). Absent: accessory muscle use, rales, rhonchi, wheezes - Cardiovascular Cardiovascular exam: Present: RRR, +S1, +S2. Absent: diastolic murmur, gallop, rubs, systolic murmur - GI/Abdominal GI/Abdominal exam: Present: normal bowel sounds, soft, no peritoneal signs. Absent: distended, tenderness - Extremities Exam Extremities exam: Present: warm, radial pulses palpable and symetrical. Absent : calf tenderness, cyanotic, pedal edema Internal Medicine: Result - Labs CBC & Chem 7: 09/10/16 03:38 09/10/16 03:38 - Impressions Abnormal Lab Results 09/10/16 09/10/16 09/10/16 11:29 16:48 20:08 POC Glucose 341 H 419 H* 268 H 09/10/16 09/11/16 22:26 06:54 POC Glucose 226 H 118 H Intake & Output 09/08/16 09/09/16 09/10/16 09/11/16 23:59 23:59 23:59 23:59 Intake Total 2760 / 2760 2600 / 2600 1060 / 1060 Output Total 3100 / 3100 6200 / 6200 4255 / 4255 700 / 700 Balance -340 / -340 -3600 / -3600 -3195 / -3195 -700 / -700 Weight 126.6 kg 127.286 kg 131.5 kg 131.5 kg - VTE Documentation of Mechanical Device: Graduated compression elastic hosiery Consult Discharge Plan - Plan Referrals: Sherry Weaver, CAR RENTAL AGENCY MANAGER [Primary Care Provider] -
[2016-09-11] MEDS: Doxycycline 100 MG in 0.9 % Sodium Chloride Mini Bag 100 ML IVPB SCH ×2 (09:58→22:55)
[2016-09-11] MEDS: GuaiFENesin/Dextromethorphan TABLET PO SCH ×2 (09:58→21:16)
[2016-09-11] MEDS: Losartan/HCTZ 50-12.5 TABLET PO SCH (10:01)
[2016-09-11] MEDS: Furosemide 40 MG/4 ML VIAL IVP SCH (10:07)
[2016-09-11] MEDS: amLODIPine 5 MG TABLET PO SCH (10:07)
[2016-09-11 10:46] LABS: Appearance of Body Fluid Slightly Hazy (Clear); Volume of Body Fluid 14 mL
--- NOTE | 2016-09-11 13:27 | Pulmonology Consult Note ---
Date of Encounter: 09/11/16 Time of Encounter: 07:00 Assessment and Plan (1) Atelectasis of right lung Current Visit: Yes Status: Suspected Explained to patient about CXR findings and bronchoscopy with all the risks, alternatives, and benefits of the procedure explained to patient and she agreed to have it done. Need to evaluate for any endobronchial lesion or mucus plugs. (2) Asthma with exacerbation Current Visit: Yes Status: Acute Agree with current treatment and outpatient follow up is important. Qualifiers: Asthma severity: unspecified severity Qualified Code(s): J45.901 - Unspecified asthma with (acute) exacerbation History of Present Illness Consult date: 09/11/16 Requesting physician: Umu Guillaume Reason for consult: abnormal CXR/CT Chief complaint: Dyspnea History of present illness: This is a pleasant 55 year female who present to the hospital with dyspnea, which has improved since the admission. Patient has history of asthma and denies any history of copd. Pulmonary was consulted because of the abnormal CXR with evidence collapse of the right middle lobe. She has some cough, but denies any hemoptysis and no significant wheezing. She has some sputum production. She denies any history of LILIA. Past Med Surg Social Fam HX - Past Medical History Medical history: asthma, diabetes, hypertension Psychiatric history: no psych history - Past Surgical History Surgical History: no surgical history - Social History Smoking Status: Former smoker Alcohol use: none Drug use: none - Family History Father Living Status: Cause of : COPD Hx Family Endocrine Disorder: Yes (DM) Mother Living Status: Cause of : COPD Medications and Allergies Albuterol Sulfate [Ventolin Hfa] 2 puff IH Q4H PRN 09/07/16 [History] Amlodipine [Norvasc] 5 mg PO DAILY 09/07/16 [History] Cyclobenzaprine HCl [Cyclobenzaprine HCl] 10 mg PO TID 09/07/16 [History] HYDROcodone/Acet 7.5/325 mg [[place] 7.5-325 mg] 1 tab PO TID PRN 09/07/16 [ History] Losartan/Hydrochlorothiazide [Hyzaar 100-25 Tablet] 1 tab PO DAILY 09/07/16 [ History] Metformin HCl [Metformin HCl] 1,000 mg PO BID 09/07/16 [History] Paroxetine HCl [Paroxetine] 40 mg PO DAILY 09/07/16 [History] Ropinirole [Requip] 1 mg PO HS 09/07/16 [History] Allergies cephalexin [From Keflex] Allergy (Verified 09/07/16 13:01) Hives ciprofloxacin [From Cipro] Allergy (Verified 09/07/16 13:01) Hives gabapentin Allergy (Verified 09/07/16 13:01) Hives All Systems: A 10-system review of systems was performed and is negative for pertinent findings except as documented above in the HPI. Physical Examination Vital Signs: Vital Signs, Last 4 Hours Temp Pulse Resp BP Pulse Ox 09/11/16 11:09 98.1 F 71 18 114/74 95 General appearance: no acute distress Eyes: nonicteric Mallampati (class): 3 Neck: supple, no lymphadenopathy Effort: normal Auscultation: left: clear, right: diminished breath sounds Cardiovascular: regular rate and rhythm Gastrointestinal: normoactive bowel sounds Extremities: no cyanosis Musculoskeletal: no deformities normal mental status, non-focal exam mood appropriate Results - Laboratory Findings CBC and BMP: 09/10/16 03:38 09/10/16 03:38 Abnormal lab findings: Abnormal lab results WBC 12.7 K/mcL (4.3-11.1) H 09/10/16 03:38 BUN 21 mg/dL (7-20) H 09/10/16 03:38 BUN/Creatinine Ratio 28 (6-26) H 09/10/16 03:38 Glucose 206 mg/dL (70-99) H 09/10/16 03:38 POC Glucose 246 (58-89) H 09/11/16 11:08 Hemoglobin A1c 10.2 % (-5.6) H 09/07/16 14:07 Albumin 3.2 g/dL (3.5-5.0) L 09/10/16 03:38 Fluid Appearance Slightly Hazy (Clear) A 09/11/16 09:38 - Diagnostic Findings Chest x-ray: report reviewed, image reviewed - Clinical Findings Intake & Output: Intake & Output 09/10/16 09/11/16 09/11/16 23:59 07:59 15:59 Intake Total 820 / 820 Output Total 850 / 850 700 / 700 Balance -30 / -30 -700 / -700 Weight 131.5 kg Consult Discharge Plan - Plan Referrals: Sherry Weaver, SHAHID [Primary Care Provider] -
[2016-09-11 15:10] LABS: Adenovirus Not Detected (Not Detect); Bordetella Pertussis Not Detected (Not Detect); Chlamydophila pneumoniae Not Detected (Not Detect); Coronavirus 229E Not Detected (Not Detect); Coronavirus HKU1 Not Detected (Not Detect); Coronavirus NL63 Not Detected (Not Detect); Coronavirus OC43 Not Detected (Not Detect); Human Metapneumovirus Not Detected (Not Detect); Human Rhinovirus/Enterovirus Not Detected (Not Detect); Influenza A Subtype 2009 H1 Not Detected (Not Detect); Influenza A Untypeable Not Detected (Not Detect); Influenza B Not Detected (Not Detect); Mycoplasma pneumoniae Not Detected (Not Detect); Parainfluenza Virus 1 Not Detected (Not Detect); Parainfluenza Virus 2 Not Detected (Not Detect); Parainfluenza Virus 3 Not Detected (Not Detect); Parainfluenza Virus 4 Not Detected (Not Detect); Respiratory Syncytial Virus Not Detected (Not Detect)
[2016-09-11] MEDS: *HR* Metformin 500 MG TABLET PO SCH (17:02)
[2016-09-11] MEDS: rOPINIRole 1 MG TABLET PO SCH (21:16)
[2016-09-11] MEDS: Insulin DETEMIR 100 UNIT/ML X5UNITS SQ SCH (21:19)
[2016-09-12] MEDS: Ipratropium/Albuterol Neb 3 ML IH SCH ×3 (00:35→10:32)
[2016-09-12] MEDS: *HR* Enoxaparin 40 MG/0.4 ML SYRINGE SQ SCH (05:29)
[2016-09-12] MEDS: Acetaminophen 325 MG TABLET PO PRN (06:32)
[2016-09-12 06:46] VITALS: BP 110/69
[2016-09-12] MEDS: Furosemide 40 MG/4 ML VIAL IVP SCH (08:15)
[2016-09-12] MEDS: amLODIPine 5 MG TABLET PO SCH (08:15)
[2016-09-12] MEDS: GuaiFENesin/Dextromethorphan TABLET PO SCH (08:15)
[2016-09-12] MEDS: MethylPREDNISolone 40 MG/ML VIAL IVP SCH (08:15)
[2016-09-12] MEDS: *HR* Metformin 500 MG TABLET PO SCH (08:15)
[2016-09-12] MEDS: Losartan/HCTZ 50-12.5 TABLET PO SCH (08:15)
[2016-09-12] MEDS: Insulin LISPRO 300 UNITS/3 ML VIAL SQ SCH (08:16)
[2016-09-12] MEDS: Insulin DETEMIR 100 UNIT/ML X5UNITS SQ SCH (08:20)
--- NOTE | 2016-09-12 08:31 | Discharge Summary ---
Date of Encounter: 09/12/16 Time of Encounter: 07:15 - Discharge Diagnosis (1) Asthma with exacerbation Priority: Primary Status: Acute Qualifiers: Asthma severity: unspecified severity Qualified Code(s): J45.901 - Unspecified asthma with (acute) exacerbation Code(s): J45.901 - Unspecified asthma with (acute) exacerbation SNOMED Code(s) : 030952978 (2) Community acquired pneumonia Priority: Primary Status: Acute Code(s): J18.9 - Pneumonia, unspecified organism SNOMED Code(s ): 515882916 (3) Type 2 diabetes mellitus Priority: Primary Status: Acute Qualifiers: Diabetes mellitus complication status: without complication Diabetes mellitus rn wound care insulin use: without chcf use Qualified Code(s): E11.9 - Type 2 diabetes mellitus without complications Code(s): E11.9 - Type 2 diabetes mellitus without complications SNOMED Code(s) : 75386407 (4) Hypoxemia Priority: Primary Status: Acute Code(s): R09.02 - Hypoxemia SNOMED Code(s): 903078244 - Discharge Medications Prescriptions: Docusate [Colace] 100 mg PO BID PRN #60 capsule PRN Reason: Constipation GuaiFENesin/Dextromethorphan [Mucinex Dm] 1 each PO BID #20 tab.er.12h Insulin DETEMIR [Levemir] 25 unit SQ BID #3 vial Ipratropium/Albuterol Neb [Duoneb] 3 ml IH QIDR PRN #120 inhsol PRN Reason: Shortness Of Breath/Wheezing PredniSONE 20 mg PO DAILY #11 tablet Sulfamethoxazole/Trimeth DS [Bactrim Ds] 1 each PO BID #14 tablet Home Medications: Albuterol Sulfate [Ventolin Hfa] 2 puff IH Q4H PRN 09/07/16 [History] Amlodipine [Norvasc] 5 mg PO DAILY 09/07/16 [History] Cyclobenzaprine HCl 10 mg PO TID 09/07/16 [History] HYDROcodone/Acet 7.5/325 mg [[place] 7.5-325 mg] 1 tab PO TID PRN 09/07/16 [ History] Losartan/Hydrochlorothiazide [Hyzaar 100-25 Tablet] 1 tab PO DAILY 09/07/16 [ History] Metformin HCl 1,000 mg PO BID 09/07/16 [History] Paroxetine HCl [Paroxetine] 40 mg PO DAILY 09/07/16 [History] Ropinirole [Requip] 1 mg PO HS 09/07/16 [History] Docusate [Colace] 100 mg PO BID PRN #60 capsule 09/12/16 [Rx] GuaiFENesin/Dextromethorphan [Mucinex Dm] 1 each PO BID #20 tab.er.12h 09/12/16 [Rx] Insulin DETEMIR [Levemir] 25 unit SQ BID #3 vial 09/12/16 [Rx] Insulin LISPRO [HumaLOG] 0 units SQ QIDAC vial 09/12/16 [Rx] Ipratropium/Albuterol Neb [Duoneb] 3 ml IH QIDR PRN #120 inhsol 09/12/16 [Rx] PredniSONE 20 mg PO DAILY #11 tablet 09/12/16 [Rx] Sulfamethoxazole/Trimeth DS [Bactrim Ds] 1 each PO BID #14 tablet 09/12/16 [Rx] Allergies/Adverse Reactions: Allergies cephalexin [From Keflex] Allergy (Verified 09/07/16 13:01) Hives ciprofloxacin [From Cipro] Allergy (Verified 09/07/16 13:01) Hives gabapentin Allergy (Verified 09/07/16 13:01) Hives Procedures/tests Complete & Pending: Procedures Performed prior 72 hours Category Date Time Status EV echocardiogram Routine Y 09/10/16 18:34 Completed Date of admission: 09/07/16 18:51 Primary care physician: Sherry Weaver CNP Consults: 09/10/16 17:55 Consult to Pulmonology [CONS] Routine Consulting Provider: [facility] Reason for Consult: Right middle lung collapse Call Completed: Yes Discharging clinician: Umu Guillaume - Patient Status Disposition: Home, Self-Care Condition: Good - Discharge Instructions Instructions: Sulfamethoxazole/Trimethoprim (By mouth), Decongestant/ Expectorant (By mouth), Prednisone (By mouth), Asthma (DC), Diabetes Mellitus Type 2 in Adults (DC), Chronic Hypertension (DC), Pneumonia (DC) Follow Up With: Sherry Weaver CNP [Primary Care Provider] - 09/16/16 4:00 pm Additional Instructions: Follow-up was pulmonary in 1-2 weeks - Diet and Activity Activity: resume usual activities as tolerated Diet: diabetic diet Hospital course: Ms. Chisholm is a 55 year old female with history of asthma, and type 2 diabetes who presented to the ED with complaint of productive cough with greenish sputum and shortness of breath. She reports this has been going on for 2 weeks. She has visited her PCP and an urgent care and was prescribed antibiotics, oral steroids and breathing treatments, but reports the steroids would make her nauseous. Symptoms have not resolved and were getting worse. She reports she has pain in her right ribs from coughing. She denied any fever or chills. Her blood sugar was 460 on arrival,She denies any fever,Her evaluation in the ED was significant for CXR which showed bibasilar opacities suggestive of pneumonia. She was satting 92% on room air on arrival. Patient was admitted to the hospital, we started patient on antibiotic, steroids, aerosol treatment and Mucinex. Patient condition was improving slowly. Repeated chest x-ray showed evidence of collapse of right middle lobe. Pulmonary was consulted. Recommended bronchoscopy. Bronchoscopy done ,discussed with the pulmonary, he stated that no evidence of lesions or tumors most likely atelectasis. Her blood sugar was uncontrolled. She required multiple IV bolus of insulin . Continue to adjust her medication gradually. Had long discussion was patient at bedside about need for insulin and about the long-term complication of uncontrolled diabetes. Medication adjusted gradually. Patient was eating a lot of candy from home. Discussed with patient about risk of poor eating habit discussed about lifestyle modification. Patient discharged home in stable condition, patient has sign of volume overload with cardiac echo was done which showed normal ejection fraction mild diastolic dysfunction received the 4 dose of Lasix . Currently euvolemic . Possible secondary to steroid and IV fluid . Need close monitoring of her electrolytes as an outpatient in view of Bactrim . - Time Spent with Patient Total time spent providing and/or coordinating discharge services: Greater than 30 minutes - Constitutional Vitals: Temp Pulse Resp BP Pulse Ox 98.5 F 70 17 110/69 90 L 09/12/16 06:41 09/12/16 06:41 09/12/16 06:41 09/12/16 06:41 09/12/16 06:41 General appearance: Present: morbidly obese, no acute distress - VTE Documentation of Mechanical Device: Graduated compression elastic hosiery
[2016-09-12] MEDS ORDERED: Sulfamethoxazole/Trimeth DS 1 EACH TABLET PO SCH (09:00)
[2016-09-12] MEDS ORDERED: predniSONE 20 MG TABLET PO SCH (09:00)
[2016-09-12 09:28] LABS: BUN/Creatinine Ratio 22 (6-26); Blood Urea Nitrogen 19 mg/dL (7-20); Calcium 8.8 mg/dL (8.6-10.8); Carbon Dioxide 24 mEq/L (19-29); Chloride 96 mEq/L (98-109); Glucose 317 mg/dL (70-99); Osmolality,Calculated 288 (280-300); Potassium 3.3 mEq/L (3.5-4.5); Sodium 132 mEq/L (136-145); eGFR For African Americans > 60 (> 60); eGFR For Non-African Americans > 60 (> 60)
== END 2016-09-12 10:50 | disposition home or self-care (01) | DRG 194 ==
LOC: 3BNU 12:47 → EMEROO 12:47 → 3BNU 18:00
PROVIDERS: ADMIT Internal Medicine; ATTEND Internal Medicine

== ENCOUNTER 2016-12-24 06:31 | Inpatient (IN) ==
[2016-12-24] MEDS ORDERED: Vancomycin 2,000 MG in D5% in Water 500 ML IVPB ONE (06:55)
[2016-12-24] MEDS ORDERED: Albuterol 2.5 MG/3 ML NEBULIZER IH ONE (06:57)
[2016-12-24] MEDS ORDERED: MetroNIDAZOLE 500 MG/100 ML 500 MG/100 ML BAG IVPB ONE (06:57)
[2016-12-24] MEDS ORDERED: Ringers Solution, Lactated 1,000 ML IVC SCH ×2 (07:00→10:00)
[2016-12-24] MEDS ORDERED: Ondansetron 4 MG/2 ML VIAL ONE (07:09)
[2016-12-24] MEDS ORDERED: *HR* FentaNYL (PF) 100 MCG/2 ML VIAL ONE (07:09)
[2016-12-24] MEDS ORDERED: EPHEDrine 50 MG/ML VIAL ONE (07:09)
[2016-12-24] MEDS ORDERED: Dexamethasone 4 MG/ML VIAL ONE (07:09)
[2016-12-24] MEDS ORDERED: Lidocaine -MPF 4% 5 ML AMPUL ONE (07:09)
[2016-12-24] MEDS ORDERED: *HR* Succinylcholine 200 MG/10 ML VIAL IVP ONE (07:09)
[2016-12-24] MEDS ORDERED: *HR* Rocuronium Bromide 50 MG/5 ML VIAL ONE ×3 (07:09→11:53)
[2016-12-24] MEDS ORDERED: *HR* Phenylephrine 10 MG/ML VIAL ONE (07:09)
[2016-12-24] MEDS ORDERED: *HR* Propofol 200 MG/20 ML VIAL IVP ONE (07:09)
[2016-12-24] MEDS ORDERED: Lidocaine -MPF 2% 2 ML VIAL ONE (07:09)
[2016-12-24] MEDS ORDERED: *HR* Midazolam HCl 2 MG/2 ML VIAL ONE ×2 (07:09→08:19)
[2016-12-24] MEDS ORDERED: Lacri-Lube 3.5 GM TUBE ONE (07:11)
--- NOTE | 2016-12-24 07:23 | History & Physical Report ---
Date of Encounter: 12/24/16 Time of Encounter: 07:22 24 Hour HP Update - Instructions Instructions: If the History and Physical is less than 30 days old and was completed prior to A.M. admission and or procedure and has NOT been updated on calendar day of procedure please complete this update prior to performing procedure. - Update Patient reports changes in Medical Condition: No Changes in examination, assessment, or condition: No Changes in Medication: No Preop tests/diagnostics Reviewed: Yes Pre-Op MRSA Screen: Negative Surgery Remains Indicated: Yes Consent for Planned Operative Procedure(s) Verified: Yes - Pre-Operative Checklist Preoperative Checklist Indicated: No Prophylactic Antibiotic Ordered: Yes Home Medications Include Beta Madelin: No Beta Madelin Taken Today (Day of Surgery): No Beta Madelin Taken Yesterday (Day Prior to Surgery): No Is VTE Prophylaxis Indicated?: NO
--- NOTE | 2016-12-24 07:34 | Anesthesia Evaluation PreOp ---
Date of Encounter: 12/24/16 Time of Encounter: 07:31 - Past History Planned Operation: Robotic Sigmoid Colon Resection Cardiac History: HTN, Hyperlipidemia Pulmonary History: Former smoker (Quit > 10 years ago), Asthma, COPD CHICKEN HANGER History: Denies Any Significant HX Other Medical History: Diabetes Type II Anesthesia History: No Prior Anesthetic Complications, Past Anesthesia (C) : No Alcohol Use: none Drug use: none Medications and Allergies Albuterol Sulfate [Ventolin Hfa] 2 puff IH Q4H PRN 09/07/16 [History] Amlodipine [Norvasc] 5 mg PO DAILY 09/07/16 [History] Cyclobenzaprine HCl 10 mg PO TID 09/07/16 [History] HYDROcodone/Acet 7.5/325 mg [[place] 7.5-325 mg] 1 tab PO TID PRN 09/07/16 [ History] Losartan/Hydrochlorothiazide [Hyzaar 100-25 Tablet] 1 tab PO DAILY 09/07/16 [ History] Metformin HCl 1,000 mg PO BID 09/07/16 [History] Paroxetine HCl [Paroxetine] 40 mg PO DAILY 09/07/16 [History] Ropinirole [Requip] 1 mg PO HS 09/07/16 [History] Insulin DETEMIR [Levemir] 25 unit SQ BID #3 vial 09/12/16 [Rx] Insulin LISPRO [HumaLOG] 0 units SQ QIDAC vial 09/12/16 [Rx] Ipratropium/Albuterol Neb [Duoneb] 3 ml IH QIDR PRN #120 inhsol 09/12/16 [Rx] Albuterol Neb [Proventil Neb] 2.5 mg IH TID PRN 10/03/16 [History] Allergies cephalexin [From Keflex] Allergy (Verified 09/07/16 13:01) Hives ciprofloxacin [From Cipro] Allergy (Verified 09/07/16 13:01) Hives gabapentin Allergy (Verified 09/07/16 13:01) Hives Penicillins Allergy (Verified 11/25/16 09:29) See Comments - Meds/Allergy Pre-op Review Medications Reviewed: Yes Allergies Reviewed: Yes Beta Blockers on Current Med List: No Anesthesia Results - Labs Laboratory Tests 11/25/16 11/25/16 12/24/16 09:34 09:34 07:23 WBC 9.5 Hgb 13.6 Hct 42.5 Plt Count 261 Sodium 138 Potassium 3.6 Chloride 100 Carbon Dioxide 29 BUN 12 Creatinine 0.83 POC Glucose 135 H Echo 09/10/16 EF-65% - Imaging EKG: image reviewed (SR) Anesthesia Exam O2 Sat Height 1.75 m Height 1.73 m Weight 130.181 kg Weight 127.913 kg O2 Sat by Pulse Oximetry 96 O2 Sat by Pulse Oximetry 96 Vital Signs Temp Pulse Resp BP Pulse Ox 98.1 F 72 16 141/74 96 12/24/16 07:00 12/24/16 07:00 12/24/16 07:00 12/24/16 07:00 12/24/16 07:00 - HEENT Pupil (Motor): Pupils equal, EOMI - CHICKEN HANGER LOC: Oriented CHICKEN HANGER Motor: Normal RUE, Normal LUE, Normal RLE, Normal LLE, Normal Face CHICKEN HANGER Sensory: Normal: RUE, LUE, RLE, LLE, Face - Cardiac Rhythm: Regular Murmur: None JVD: No Carotid Bruit: No - Pulmonary Breath Sounds: bilateral Clear Respiratory Effort: Symmetrical Anesthesia Assess/Plan ASA Score: 3 ([place]-BMI 42, DM, HTN, COPD) Modified [place] Scale for Level of Consciousness: Cooperative, oriented, and tranquil Anesthetic Plan: General Autologous Blood: Yes Monitoring Plan: Standard Monitors Recovery Plan: PACU
[2016-12-24] MEDS ORDERED: Ketamine *HR* 500 MG/10 ML MDV ONE (09:22)
[2016-12-24] MEDS ORDERED: *HR* Remifentanil 2 MG VIAL IVP ONE ×2 (09:33→11:10)
[2016-12-24] MEDS ORDERED: Ondansetron 4 MG/2 ML VIAL IVP ONE (09:50)
[2016-12-24] MEDS ORDERED: *HR* Labetalol 100 MG/20 ML MDV IVP PRN (09:50)
[2016-12-24] MEDS ORDERED: Neostigmine Methylsulfate 3 MG/3 ML SYRINGE ONE (12:25)
[2016-12-24] MEDS ORDERED: *HR* Labetalol 20 MG/4 ML SYRINGE IVP ONE (12:46)
[2016-12-24] MEDS ORDERED: *HR* HYDROmorphone 2 MG/ML SYRINGE ONE (12:48)
--- NOTE | 2016-12-24 12:53 | Operative Note ---
Date of procedure: 12/24/16 Pre-op diagnosis: Non-resectable rectal polyp Post-op diagnosis: same Procedure: Robot assisted sigmoid colectomy Anesthesia: AMY Surgeon: Magdiel Marquez Tree Deadener: Caro Sahni Specimen: sigmoid colon and rectum, anastamotic rings Condition: stable Disposition: PACU Procedure in Detail: Date of surgery: 12/24/16 Surgical indications: the patient is a 56 year old female who underwent a screening colonoscopy where several polyps were discovered and removed. One polyp was located approximately 20cm from the anal verge (high rectum) and was unable to be removed endoscopically. It was notable for being a tubular adenoma. Due to its size and location the patient is brought to the OR for a robot assisted sigmoid (and rectal) resection. After properly identifying the patient, the patient was brought to the operating room placed in supine position. After proper IV sedation was achieved followed by general endotracheal intubation, the patient's abdomen was prepped and draped in a normal sterile fashion. Of note, the patient was placed in the low lithotomy position and the perianal and perineal space were also prepped and draped. A timeout was performed noting the patient's name and procedure to be performed. A 15 blade scalpel was used to make an incision 1 cm superior and 1 cm to the right of the umbilicus. A 12 mm Visiport was used to dissect through the subcutaneous tissue, external and internal oblique fascia , and transversalis abdominous fascia until the abdomen was entered. A laparoscopic camera was placed through the port which showed no injury to the intra-abdominal organs upon entry. A left upper quadrant 8 mm port, right lateral 8 mm port, and right lower quadrant 12 mm port was then placed under direct camera visualization. The patient was placed in a Trendelenburg position and the da Dottie robot was brought towards the operative field and docked appropriately. Internal visualization demonstrated a very long and tortuous sigmoid colon. The sigmoid colon is a single prominence was grasped and retracted superiorly while the base of the mesentery was scored with Bovie cauterization. Dissection was then carried through the mesentery with Bovie cauterization and utilization of the laparoscopic vessel sealer. The dissection was carried inferiorly towards the presacral space with Bovie cauterization as well, however given the patient's body habitus and morbid obesity further visualization was made difficult. The decision was made to go ahead and transect across the sigmoid colon above the level of the sacral prominence with a robotic stapling device. Of note; the 12 mm port had to be upsized to a 15 mm port. After this was performed further dissection was performed by dissecting the lateral sidewall attachments of the distal descending colon and sigmoid colon from their normal resting position. This allowed for better medial retraction. Due to the limited visualization from to the patient's body habitus the decision was made to convert this to the open procedure by desuflating the abdomen and making an incision from the pubic symphysis extending superiorly to just below the umbilicus along the midline for a length of approximately 8 cm. Dissection was carried through the subcutaneous tissue until the rectus fascia was encountered and incised. An Eamon protection device was placed in the wound and a Bookwalter was brought to the operative field to provide retraction. The sigmoid was examined and retracted out of the wound and dissection posteriorly around the sigmoid down to the rectosigmoid junction was performed with a handheld LigaSure. Dissection was also performed to get down into the pelvis and around the rectum. The mesentery was also scored laterally with Bovie cauterization. A contour stapler was then placed across the rectum and transection was performed without difficulty. Opening of the specimen on a separate table did not show evidence of the location of the non-resectable colon polyp. Further visualization of the rectal stump was performed and further dissection circumferentially around the rectum to clear away the mesentery was performed by blunt dissection and Bovie cauterization until the "blue dye and "could be identified along the serosa. The staple line was opened at the rectal stump to ensure visualization of the nonresectable polyp, which was noted. The polyp was noted to be anterior in location in the rectum and it appeared to be much lower in the rectum than initially suspected by the patient's pre surgical CAT scan. The meso rectum was cleared away from the surrounding rectum and the contour stapler was once again placed across the rectum just below the polyp and transection was performed. Complete resection of the specimen was verified. The decision was made to prepare the distal colonic stump for anastomosis. The staple line was transected with Bovie cauterization along the distal colonic stump and sizers were placed through the opening. A 29-[place] EEA stapler was brought onto the operative field and a 2-0 Prolene pursestring was created at the distal colonic opening. The anvil was then placed through the entertomy and the pursestring was tied. The EEA stapler was placed through the anus and the male end was extruded at the level of the rectal stump staple line. The anvil was connected in the EEA stapler which was then retracted and fired without difficulty. Visualization noted 2 intact anastomotic rings, which were submitted to pathology and the pelvis was filled with normal saline solution above the staple line while the distal colon was clamped. Air was placed through the anus to insufflate the rectum and no evidence of a leak was identified. The fluid was then suctioned and the pelvis was copiously irrigated with normal saline solution and then removed. The decision was made to go ahead and complete the surgical procedure by placing Seprafilm within the wound and reapproximating the fascia with 2 #1 non looped PDS sutures. The subcutaneous tissue was reapproximated with interrupted 2-0 Vicryl sutures and the epidermal and dermal layers for the remaining incisions were closed with jess. Needle, sponge, and instrument counts were correct 2 and the incisions were covered with 2 x 2's and 4 x 4's. The patient was aroused from IV sedation, extubated in the operating room without complication, and transported to the recovery room stable condition.
[2016-12-24] MEDS ORDERED: Naloxone 0.4 MG/ML INJ IVP PRN (13:04)
[2016-12-24] MEDS: *HR* HYDROmorphone (PF) 1 MG/ML SYRINGE IVP PRN ×4 (13:15→21:02)
--- NOTE | 2016-12-24 13:55 | Anesthesia Evaluation Post Op ---
Date of Encounter: 12/24/16 Time of Encounter: 13:54 - Vital Signs Vital Signs: Vital Signs/O2 Sat, Most Current Temp Pulse Resp BP Pulse Ox 97.8 F 70 17 141/83 92 12/24/16 13:31 12/24/16 13:41 12/24/16 13:41 12/24/16 13:41 12/24/16 13:41 - Lungs Lungs: Clear Ascult./Percussion - Airway Airway: Non-obstructed - Cardiovascular Regular Rate - Mental Status Mental Status: Alert & Oriented, Answers Appropriately - Pain Pain Scale: 4 (sleeping) Pain Scale used: Numeric (1 - 10) - Hydration Hydration: NPO, Mohamud catheter - Discharge PostOp Status: Transfer Patient to floor
[2016-12-24] MEDS: 0.9 % Sodium Chloride 1,000 ML IVC SCH (15:39)
[2016-12-24] MEDS: MetroNIDAZOLE 500 MG/100 ML 500 MG/100 ML BAG IVPB SCH (15:40)
[2016-12-25] MEDS: MetroNIDAZOLE 500 MG/100 ML 500 MG/100 ML BAG IVPB SCH ×3 (00:20→15:59)
[2016-12-25] MEDS: Ondansetron 4 MG/2 ML VIAL IVP PRN (00:20)
[2016-12-25] MEDS: 0.9 % Sodium Chloride 1,000 ML IVC SCH ×2 (03:20→15:59)
[2016-12-25] MEDS: *HR* HYDROmorphone (PF) 1 MG/ML SYRINGE IVP PRN ×4 (03:22→21:24)
[2016-12-25 05:47] LABS: Basophils % 0.1 %; Eosinophils % 0.1 %; Hematocrit 37.4 % (35.3-44.9); Immature Granulocytes % 0.3 % (0-4); Lymphocytes # 1.5 K/mcL (0.6-4.6); Lymphocytes % 10.9 %; Mean Corpuscular HGB Conc 32.1 g/dL (31.6-35.5); Mean Corpuscular Hemoglobin 29.9 pg (28.0-33.3); Mean Corpuscular Volume 93.3 fL (83.0-100.0); Mean Platelet Volume 9.6 fL (9.4-12.4); Monocytes # 1.2 K/mcL (0.0-1.3); Monocytes % 8.7 %; Platelet Count 223 K/mcL (140-400); Red Blood Count 4.01 M/mcL (3.82-4.97); Red Cell Distribution Width 12.7 % (11.5-14.5); Segmented Neutrophils % 79.9 %
[2016-12-25 06:03] LABS: Calcium 8.4 mg/dL (8.6-10.8); Carbon Dioxide 28 mEq/L (19-29); Chloride 106 mEq/L (98-109); Glucose 184 mg/dL (70-99); Magnesium 1.5 mg/dL (1.6-2.6); Phosphorous 3.6 mg/dL (2.3-4.7); Potassium 3.6 mEq/L (3.5-4.5); Sodium 139 mEq/L (136-145); eGFR For African Americans > 60 (> 60); eGFR For Non-African Americans > 60 (> 60)
[2016-12-25 06:22] LABS: BUN/Creatinine Ratio 9 (6-26); Blood Urea Nitrogen 8 mg/dL (7-20); Osmolality,Calculated 291 (280-300)
[2016-12-25] MEDS: Pantoprazole 40 MG VIAL IVP SCH (08:06)
[2016-12-25] MEDS ORDERED: *HR* Dextrose 50 % in Water (Syg) 50 ML SYRINGE IVP PRN (10:13)
[2016-12-25] MEDS ORDERED: D5% in Water 1,000 ML IVC PRN (10:13)
[2016-12-25] MEDS ORDERED: Dextrose Gel 15 GM PO PRN ×2 (10:13)
--- NOTE | 2016-12-25 10:16 | General Surgery Progress Note ---
Date of Encounter: 12/25/16 Time of Encounter: 10:14 - Assessment and Plan (1) Rectal polyp Current Visit: Yes Status: Acute POD #1 Robot assisted sigmoid colectomy with Dr. Marquez NPO except ice chips while awaiting return of bowel function IV fluids Supportive care/pain control Increase activity as tolerated IS every 1 hour while awake PPI therapy daily Discontinue cruz catheter AM labs (2) Type 2 diabetes mellitus Current Visit: No Status: Chronic Added low sliding scale insulin coverage Will monitor and adjust as necessary Qualifiers: Diabetes mellitus complication status: without complication Diabetes mellitus retirement insulin use: without terminal worker use Qualified Code(s): E11.9 - Type 2 diabetes mellitus without complications (3) DVT prophylaxis Current Visit: No Status: Acute Heparin 5,000 units SQ twice daily for DVT prophylaxis Subjective Patient reports: still having pain (surgical), no flatus, no bowel movement, afebrile Objective Vital Signs - Last 8 Hours Temp Pulse Resp BP Pulse Ox 12/25/16 06:46 98.3 F 88 16 127/67 93 12/25/16 03:35 98.8 F 86 16 133/74 94 Intake and Output 12/24/16 12/25/16 12/25/16 23:59 07:59 15:59 Intake Total 100 / 100 1100 / 1100 Output Total 500 / 500 1190 / 1190 Balance -400 / -400 -90 / -90 Intake: IV Fluids 100 / 100 1100 / 1100 0.9 % Sodium Chloride 1, 1000 / 1000 000 ML @ 100 mls/hr IVC . Q10H [facility] Rx#:[id number] Flagyl 500 MG/100 ML 500 100 / 100 100 / 100 mg In 100 ml @ 100 mls/hr IVPB Q8HR [facility]ATT Rx#: [id number] Oral 0 / 0 0 / 0 Output: Catheter 500 / 500 1190 / 1190 Other: Meal NPO NPO Blood Glucose* 214 162 - General physical appearance well developed, well nourished, no distress - Eyes normal ocular movement - ENT normal mucosa, atraumatic, normocephalic - Neck Neck exam: trachea midline - Respiratory normal respiratory effort, clear to auscultation - Cardiovascular Cardiovascular exam: Present: RRR - Abdomen Abdomen: Present: soft, tender (expected post-operative tenderness) - Incision Incision: Present: clean and dry, intact - Genitourinary other (cruz catheter to SD with clear, yellow urine noted) - Neurologic CN 2-12 grossly intact - Psychiatric oriented to time, oriented to person, oriented to place, speech is normal, memory intact - Labs 12/25/16 05:37 12/25/16 05:37 Diabetes panel 12/25/16 Range/Units 05:37 Sodium 139 (136-145) mEq/L Potassium 3.6 (3.5-4.5) mEq/L Chloride 106 (98-109) mEq/L Carbon Dioxide 28 (19-29) mEq/L BUN 8 (7-20) mg/dL Creatinine 0.87 (0.57-1.11) mg/dL Glucose 184 H (70-99) mg/dL Calcium 8.4 L (8.6-10.8) mg/dL Calcium panel 12/25/16 Range/Units 05:37 Calcium 8.4 L (8.6-10.8) mg/dL Phosphorus 3.6 (2.3-4.7) mg/dL Pituitary panel 12/25/16 Range/Units 05:37 Sodium 139 (136-145) mEq/L Potassium 3.6 (3.5-4.5) mEq/L Chloride 106 (98-109) mEq/L Carbon Dioxide 28 (19-29) mEq/L BUN 8 (7-20) mg/dL Creatinine 0.87 (0.57-1.11) mg/dL Glucose 184 H (70-99) mg/dL Calcium 8.4 L (8.6-10.8) mg/dL Adrenal panel 12/25/16 Range/Units 05:37 Sodium 139 (136-145) mEq/L Potassium 3.6 (3.5-4.5) mEq/L Chloride 106 (98-109) mEq/L Carbon Dioxide 28 (19-29) mEq/L BUN 8 (7-20) mg/dL Creatinine 0.87 (0.57-1.11) mg/dL Glucose 184 H (70-99) mg/dL Calcium 8.4 L (8.6-10.8) mg/dL - VTE Documentation of Mechanical Device: Intermittent pneumatic compression device Consult Discharge Plan - Plan Referrals: Magdiel Marquez MD [Partnered Physician] - 01/08/17 11:30 am - Attending Attestation I examined this patient and my medical decision-making was reviewed with the SHOP LABORER/PA/Advanced Practice Nurse/Resident Physician. I agree with the documented findings, disposition and treatment plan as described except to the extent set forth below. I reviewed the physical exam and assessment and agree with the above. Return of bowel function. Continue with ice chips and IV fluids for now. Patient currently attempting to void status post Cruz removal.
[2016-12-25] MEDS: Insulin LISPRO 300 UNITS/3 ML VIAL SQ SCH ×2 (13:32→18:00)
[2016-12-25] MEDS: *HR* Heparin 5,000 UNIT/ML VIAL SQ SCH ×2 (14:10→17:38)
[2016-12-26] MEDS: Insulin LISPRO 300 UNITS/3 ML VIAL SQ SCH ×4 (00:42→18:51)
[2016-12-26] MEDS: 0.9 % Sodium Chloride 1,000 ML IVC SCH ×2 (03:54→18:32)
[2016-12-26] MEDS: *HR* HYDROmorphone (PF) 1 MG/ML SYRINGE IVP PRN ×5 (04:19→23:53)
[2016-12-26 04:52] LABS: Basophils % 0.2 %; Eosinophils # 0.1 K/mcL (0.0-0.6); Eosinophils % 0.6 %; Hematocrit 34.6 % (35.3-44.9); Hemoglobin 10.9 g/dL (11.5-15.4); Immature Granulocytes % 0.3 % (0-4); Lymphocytes # 1.5 K/mcL (0.6-4.6); Lymphocytes % 11.8 %; Mean Corpuscular HGB Conc 31.5 g/dL (31.6-35.5); Mean Corpuscular Volume 95.3 fL (83.0-100.0); Monocytes # 1.5 K/mcL (0.0-1.3); Monocytes % 11.8 %; Neutrophils # 9.3 K/mcL (1.6-8.9); Platelet Count 210 K/mcL (140-400); Red Blood Count 3.63 M/mcL (3.82-4.97); Red Cell Distribution Width 12.7 % (11.5-14.5); Segmented Neutrophils % 75.3 %
[2016-12-26 04:59] LABS: BUN/Creatinine Ratio 9 (6-26); Blood Urea Nitrogen 7 mg/dL (7-20); Calcium 8.3 mg/dL (8.6-10.8); Carbon Dioxide 26 mEq/L (19-29); Chloride 106 mEq/L (98-109); Glucose 154 mg/dL (70-99); Osmolality,Calculated 291 (280-300); Potassium 3.1 mEq/L (3.5-4.5); Sodium 140 mEq/L (136-145); eGFR For African Americans > 60 (> 60); eGFR For Non-African Americans > 60 (> 60)
[2016-12-26] MEDS: *HR* Heparin 5,000 UNIT/ML VIAL SQ SCH ×2 (05:59→18:06)
[2016-12-26] MEDS: Pantoprazole 40 MG VIAL IVP SCH (07:56)
[2016-12-26] MEDS ORDERED: Potassium Chloride 40 MEQ, Lidocaine 1% 2 ML in D5% in Water 500 ML IVPB ONE (13:47)
--- NOTE | 2016-12-26 13:50 | General Surgery Progress Note ---
Date of Encounter: 12/26/16 Time of Encounter: 13:48 - Assessment and Plan (1) Rectal polyp Current Visit: Yes Status: Acute POD #2 Robot assisted sigmoid colectomy with Dr. 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 insulin use: without group home use Qualified Code(s): E11.9 - Type 2 diabetes mellitus without complications (3) DVT prophylaxis Current Visit: No Status: Acute Heparin 5,000 units SQ twice daily for DVT prophylaxis (4) Hypokalemia Current Visit: Yes Status: Acute Replace potassium Repeat am labs Subjective Patient reports: no new complaints, feels better, still having pain, pain is less, voiding w/o difficulty, no flatus, no bowel movement, afebrile Objective Vital Signs - Last 8 Hours Temp Pulse Resp BP Pulse Ox 12/26/16 11:11 98.2 F 85 18 147/70 92 12/26/16 08:08 93 Intake and Output 12/25/16 12/26/16 12/26/16 23:59 07:59 15:59 Intake Total 360 / 360 1000 / 1000 0 / 0 Output Total 700 / 700 700 / 700 300 / 300 Balance -340 / -340 300 / 300 -300 / -300 Intake: IV Fluids 1000 / 1000 0.9 % Sodium Chloride 1, 1000 / 1000 000 ML @ 100 mls/hr IVC . Q10H [facility] Rx#:[id number] Oral 360 / 360 0 / 0 0 / 0 Output: Urine 700 / 700 700 / 700 300 / 300 Other: Meal npo NPO Percent of Meal Consumed 0% Blood Glucose* 169 158 138 - General physical appearance well developed, well nourished, no distress - Eyes normal ocular movement - ENT normal mucosa, atraumatic, normocephalic - Neck Neck exam: trachea midline - Respiratory normal respiratory effort, clear to auscultation - Cardiovascular Cardiovascular exam: Present: RRR - Abdomen Abdomen: Present: bowel sounds present, soft, tender (expected post-operative tenderness) - Incision Incision: Present: clean and dry, intact - Neurologic CN 2-12 grossly intact - Psychiatric oriented to time, oriented to person, oriented to place, speech is normal, memory intact - Labs 12/26/16 03:40 12/26/16 03:40 Diabetes panel 12/26/16 Range/Units 03:40 Sodium 140 (136-145) mEq/L Potassium 3.1 L (3.5-4.5) mEq/L Chloride 106 (98-109) mEq/L Carbon Dioxide 26 (19-29) mEq/L BUN 7 (7-20) mg/dL Creatinine 0.79 (0.57-1.11) mg/dL Glucose 154 H (70-99) mg/dL Calcium 8.3 L (8.6-10.8) mg/dL Calcium panel 12/26/16 Range/Units 03:40 Calcium 8.3 L (8.6-10.8) mg/dL Pituitary panel 12/26/16 Range/Units 03:40 Sodium 140 (136-145) mEq/L Potassium 3.1 L (3.5-4.5) mEq/L Chloride 106 (98-109) mEq/L Carbon Dioxide 26 (19-29) mEq/L BUN 7 (7-20) mg/dL Creatinine 0.79 (0.57-1.11) mg/dL Glucose 154 H (70-99) mg/dL Calcium 8.3 L (8.6-10.8) mg/dL Adrenal panel 12/26/16 Range/Units 03:40 Sodium 140 (136-145) mEq/L Potassium 3.1 L (3.5-4.5) mEq/L Chloride 106 (98-109) mEq/L Carbon Dioxide 26 (19-29) mEq/L BUN 7 (7-20) mg/dL Creatinine 0.79 (0.57-1.11) mg/dL Glucose 154 H (70-99) mg/dL Calcium 8.3 L (8.6-10.8) mg/dL - VTE Documentation of Mechanical Device: Intermittent pneumatic compression device Consult Discharge Plan - Plan Referrals: Magdiel Marquez MD [Partnered Physician] - 01/08/17 11:30 am - Attending Attestation I examined this patient and my medical decision-making was reviewed with the MILLINERY COPYIST/PA/Advanced Practice Nurse/Resident Physician. I agree with the documented findings, disposition and treatment plan as described except to the extent set forth below. I reviewed the physical exam and assessment and I agree with the above plan.
[2016-12-27] MEDS: Insulin LISPRO 300 UNITS/3 ML VIAL SQ SCH ×4 (01:56→21:20)
[2016-12-27 03:31] LABS: Basophils % 0.3 %; Eosinophils # 0.2 K/mcL (0.0-0.6); Eosinophils % 1.6 %; Hematocrit 32.5 % (35.3-44.9); Hemoglobin 10.3 g/dL (11.5-15.4); Immature Granulocytes % 0.5 % (0-4); Lymphocytes # 1.6 K/mcL (0.6-4.6); Lymphocytes % 13.8 %; Mean Corpuscular HGB Conc 31.7 g/dL (31.6-35.5); Mean Corpuscular Hemoglobin 30.2 pg (28.0-33.3); Mean Corpuscular Volume 95.3 fL (83.0-100.0); Mean Platelet Volume 10.3 fL (9.4-12.4); Monocytes # 1.1 K/mcL (0.0-1.3); Monocytes % 9.5 %; Neutrophils # 8.6 K/mcL (1.6-8.9); Platelet Count 196 K/mcL (140-400); Red Blood Count 3.41 M/mcL (3.82-4.97); Red Cell Distribution Width 12.7 % (11.5-14.5); Segmented Neutrophils % 74.3 %
[2016-12-27 03:39] LABS: BUN/Creatinine Ratio 10 (6-26); Blood Urea Nitrogen 7 mg/dL (7-20); Calcium 8.6 mg/dL (8.6-10.8); Carbon Dioxide 26 mEq/L (19-29); Chloride 107 mEq/L (98-109); Glucose 155 mg/dL (70-99); Osmolality,Calculated 289 (280-300); Potassium 3.1 mEq/L (3.5-4.5); Sodium 139 mEq/L (136-145); eGFR For African Americans > 60 (> 60); eGFR For Non-African Americans > 60 (> 60)
[2016-12-27] MEDS: *HR* Heparin 5,000 UNIT/ML VIAL SQ SCH ×2 (06:56→18:27)
[2016-12-27] MEDS: Pantoprazole 40 MG VIAL IVP SCH (07:50)
[2016-12-27] MEDS: *HR* HYDROmorphone (PF) 1 MG/ML SYRINGE IVP PRN ×5 (07:50→21:20)
--- NOTE | 2016-12-27 08:14 | General Surgery Progress Note ---
Date of Encounter: 12/27/16 Time of Encounter: 08:12 - Assessment and Plan (1) Rectal polyp Current Visit: Yes Status: Acute POD #3 Robot assisted sigmoid colectomy with Dr. Marquez Pathology pending. Will allow either clears are full liquids due to positive bowel sounds and pending return of bowel function. Will continue to monitor midline incision and request that it be cleaned once a day with Hibiclens and cover with 4 x 4 gauze. Continue ambulation. (2) Type 2 diabetes mellitus Current Visit: No Status: Chronic Glucose improved Continue low sliding scale insulin coverage Will monitor and adjust as necessary Qualifiers: Diabetes mellitus complication status: without complication Diabetes mellitus prison insulin use: without prison use Qualified Code(s): E11.9 - Type 2 diabetes mellitus without complications (3) DVT prophylaxis Current Visit: No Status: Acute Heparin 5,000 units SQ twice daily for DVT prophylaxis (4) Hypokalemia Current Visit: Yes Status: Acute Replace potassium Repeat am labs Subjective Patient reports: other (Patient states no flatus. No BM. No nausea or vomiting.) Objective Vital Signs - Last 8 Hours Temp Pulse Resp BP Pulse Ox 12/27/16 07:28 98.3 F 81 18 150/74 98 12/27/16 03:37 97.9 F 79 14 153/82 97 12/27/16 00:21 98.6 F 82 14 150/75 95 Intake and Output 12/26/16 12/27/16 12/27/16 23:59 07:59 15:59 Intake Total 0 / 0 0 / 0 Output Total 500 / 500 400 / 400 Balance -500 / -500 -400 / -400 Intake: Oral 0 / 0 0 / 0 Output: Urine 500 / 500 400 / 400 Other: Weight 129.9 kg Blood Glucose* 196 143 Patient Weight 12/27/16 23:59 Weight 129.9 kg - General physical appearance well nourished, no distress - Eyes PERRL, normal ocular movement - Abdomen Abdomen: Present: bowel sounds present, soft (Incisions with mild erythema. Scant drainage on dressing.) - Labs 12/27/16 03:01 12/27/16 03:01 Diabetes panel 12/27/16 Range/Units 03:01 Sodium 139 (136-145) mEq/L Potassium 3.1 L (3.5-4.5) mEq/L Chloride 107 (98-109) mEq/L Carbon Dioxide 26 (19-29) mEq/L BUN 7 (7-20) mg/dL Creatinine 0.70 (0.57-1.11) mg/dL Glucose 155 H (70-99) mg/dL Calcium 8.6 (8.6-10.8) mg/dL Calcium panel 12/27/16 Range/Units 03:01 Calcium 8.6 (8.6-10.8) mg/dL Pituitary panel 12/27/16 Range/Units 03:01 Sodium 139 (136-145) mEq/L Potassium 3.1 L (3.5-4.5) mEq/L Chloride 107 (98-109) mEq/L Carbon Dioxide 26 (19-29) mEq/L BUN 7 (7-20) mg/dL Creatinine 0.70 (0.57-1.11) mg/dL Glucose 155 H (70-99) mg/dL Calcium 8.6 (8.6-10.8) mg/dL Adrenal panel 12/27/16 Range/Units 03:01 Sodium 139 (136-145) mEq/L Potassium 3.1 L (3.5-4.5) mEq/L Chloride 107 (98-109) mEq/L Carbon Dioxide 26 (19-29) mEq/L BUN 7 (7-20) mg/dL Creatinine 0.70 (0.57-1.11) mg/dL Glucose 155 H (70-99) mg/dL Calcium 8.6 (8.6-10.8) mg/dL - VTE Documentation of Mechanical Device: Intermittent pneumatic compression device Consult Discharge Plan - Plan Referrals: Magdiel Marquez MD [Partnered Physician] - 01/08/17 11:30 am
[2016-12-27] MEDS: 0.9 % Sodium Chloride 1,000 ML IVC SCH ×2 (08:49→21:22)
[2016-12-28] MEDS: Insulin LISPRO 300 UNITS/3 ML VIAL SQ SCH ×5 (00:54→21:29)
[2016-12-28] MEDS: *HR* HYDROmorphone (PF) 1 MG/ML SYRINGE IVP PRN ×5 (02:35→21:25)
[2016-12-28] MEDS: *HR* Heparin 5,000 UNIT/ML VIAL SQ SCH ×2 (06:03→17:35)
[2016-12-28 06:51] LABS: Basophils % 0.2 %; Eosinophils # 0.2 K/mcL (0.0-0.6); Eosinophils % 1.4 %; Hematocrit 30.8 % (35.3-44.9); Hemoglobin 10.3 g/dL (11.5-15.4); Immature Granulocytes % 0.6 % (0-4); Lymphocytes # 1.6 K/mcL (0.6-4.6); Lymphocytes % 15.1 %; Mean Corpuscular HGB Conc 33.4 g/dL (31.6-35.5); Mean Corpuscular Volume 92.8 fL (83.0-100.0); Mean Platelet Volume 11.1 fL (9.4-12.4); Monocytes # 1.2 K/mcL (0.0-1.3); Monocytes % 11.2 %; Neutrophils # 7.7 K/mcL (1.6-8.9); Platelet Count 235 K/mcL (140-400); Red Blood Count 3.32 M/mcL (3.82-4.97); Red Cell Distribution Width 12.6 % (11.5-14.5); Segmented Neutrophils % 71.5 %
[2016-12-28 07:00] LABS: BUN/Creatinine Ratio 8 (6-26); Calcium 8.5 mg/dL (8.6-10.8); Carbon Dioxide 25 mEq/L (19-29); Chloride 104 mEq/L (98-109); Glucose 184 mg/dL (70-99); Osmolality,Calculated 290 (280-300); Potassium 3.1 mEq/L (3.5-4.5); Sodium 139 mEq/L (136-145); eGFR For African Americans > 60 (> 60); eGFR For Non-African Americans > 60 (> 60)
[2016-12-28 07:03] LABS: Blood Urea Nitrogen 5 mg/dL (7-20)
[2016-12-28] MEDS: Pantoprazole 40 MG VIAL IVP SCH (08:20)
[2016-12-28] MEDS: 0.9 % Sodium Chloride 1,000 ML IVC SCH (11:47)
--- NOTE | 2016-12-28 13:04 | General Surgery Progress Note ---
Date of Encounter: 12/28/16 Time of Encounter: 13:00 - Assessment and Plan (1) Rectal polyp Current Visit: Yes Status: Acute The patient is doing well after low anterior resection. She is passing flatus and tolerating clear liquids. I will advance her diet. Liquids. She was to ambulate. Subjective Narrative: The patient is status post low anterior resection. She has done well on clear liquids. Today she passed flatus has normal bowel sounds. Incisions clean and dry. We will advance her to full liquids. Objective Vital Signs - Last 8 Hours Temp Pulse Resp BP Pulse Ox 12/28/16 10:31 99.0 F 85 18 125/71 90 12/28/16 07:05 98.6 F 78 18 144/84 94 Intake and Output 12/27/16 12/28/16 12/28/16 23:59 07:59 15:59 Intake Total 1000 / 1000 120 / 120 1000 / 1000 Output Total 500 / 500 300 / 300 0 / 0 Balance 500 / 500 -180 / -180 1000 / 1000 Intake: IV Fluids 1000 / 1000 1000 / 1000 0.9 % Sodium Chloride 1, 1000 / 1000 1000 / 1000 000 ML @ 75 mls/hr IVC . [id number] [facility] Rx#: [id number] Oral 0 / 0 120 / 120 Output: Urine 500 / 500 300 / 300 0 / 0 Other: # Voids 1 # Bowel Movements 0 0 Weight 130.1 kg Blood Glucose* 216 185 196 Patient Weight 12/28/16 23:59 Weight 130.1 kg - General physical appearance well developed, well nourished, obese - Respiratory normal expansion, normal respiratory effort, clear to percussion, clear to auscultation - Cardiovascular Cardiovascular exam: Present: RRR, no murmurs/rubs/gallops - Abdomen Abdomen: Present: bowel sounds present, soft, non tender - Incision Incision: Present: clean and dry - Psychiatric oriented to time, oriented to person, oriented to place, speech is normal, memory intact - Labs 12/28/16 06:10 12/28/16 06:10 Diabetes panel 12/28/16 Range/Units 06:10 Sodium 139 (136-145) mEq/L Potassium 3.1 L (3.5-4.5) mEq/L Chloride 104 (98-109) mEq/L Carbon Dioxide 25 (19-29) mEq/L BUN 5 L (7-20) mg/dL Creatinine 0.66 (0.57-1.11) mg/dL Glucose 184 H (70-99) mg/dL Calcium 8.5 L (8.6-10.8) mg/dL Calcium panel 12/28/16 Range/Units 06:10 Calcium 8.5 L (8.6-10.8) mg/dL Pituitary panel 12/28/16 Range/Units 06:10 Sodium 139 (136-145) mEq/L Potassium 3.1 L (3.5-4.5) mEq/L Chloride 104 (98-109) mEq/L Carbon Dioxide 25 (19-29) mEq/L BUN 5 L (7-20) mg/dL Creatinine 0.66 (0.57-1.11) mg/dL Glucose 184 H (70-99) mg/dL Calcium 8.5 L (8.6-10.8) mg/dL Adrenal panel 12/28/16 Range/Units 06:10 Sodium 139 (136-145) mEq/L Potassium 3.1 L (3.5-4.5) mEq/L Chloride 104 (98-109) mEq/L Carbon Dioxide 25 (19-29) mEq/L BUN 5 L (7-20) mg/dL Creatinine 0.66 (0.57-1.11) mg/dL Glucose 184 H (70-99) mg/dL Calcium 8.5 L (8.6-10.8) mg/dL - VTE Documentation of Mechanical Device: Intermittent pneumatic compression device Consult Discharge Plan - Plan Referrals: Magdiel Marquez MD [Partnered Physician] - 01/08/17 11:30 am
[2016-12-29] MEDS: *HR* HYDROmorphone (PF) 1 MG/ML SYRINGE IVP PRN ×6 (02:00→19:53)
[2016-12-29] MEDS: 0.9 % Sodium Chloride 1,000 ML IVC SCH (02:02)
[2016-12-29] MEDS: *HR* Heparin 5,000 UNIT/ML VIAL SQ SCH ×2 (05:01→17:34)
[2016-12-29] MEDS: Insulin LISPRO 300 UNITS/3 ML VIAL SQ SCH ×4 (08:24→21:15)
[2016-12-29] MEDS: Pantoprazole 40 MG VIAL IVP SCH (08:24)
[2016-12-29] MEDS: Ondansetron 4 MG/2 ML VIAL IVP PRN ×2 (12:21→19:54)
--- NOTE | 2016-12-29 13:09 | General Surgery Progress Note ---
Date of Encounter: 12/29/16 Time of Encounter: 12:50 - Assessment and Plan (1) Rectal polyp Current Visit: Yes Status: Acute The patient is doing well after low anterior resection. She is passing flatus and tolerating clear liquids. I will advance her diet. Liquids. She was to ambulate. 12/29/2016. The patient had bowel movement today. We will advance her to regular diet. Subjective Narrative: The patient had bowel movement today and her pain is much improved. We will advance her to regular diet in anticipation of going home tomorrow. She is to continue ambulation. Objective Vital Signs - Last 8 Hours Temp Pulse Resp BP Pulse Ox 12/29/16 10:45 99.2 F 83 18 148/71 94 12/29/16 06:26 98.5 F 73 20 155/80 92 Intake and Output 12/28/16 12/29/16 12/29/16 23:59 07:59 15:59 Intake Total 660 / 660 2081 / 2081 Output Total 300 / 300 550 / 550 200 / 200 Balance 360 / 360 1531 / 1531 -200 / -200 Intake: IV Fluids 300 / 300 921 / 921 0.9 % Sodium Chloride 1, 300 / 300 921 / 921 000 ML @ 75 mls/hr IVC . [id number] [facility] Rx#: [id number] Oral 360 / 360 1160 / 1160 Output: Urine 300 / 300 550 / 550 200 / 200 Other: Meal Dinner Percent of Meal Consumed 0% 0% Stool Size Small Stool Color Brown # Urine Diapers 1 # Bowel Movements 1 0 0 Weight 132.2 kg Blood Glucose* 194 170 210 Patient Weight 12/29/16 23:59 Weight 132.2 kg - General physical appearance obese - Respiratory normal expansion, normal respiratory effort, clear to percussion, clear to auscultation - Cardiovascular Cardiovascular exam: Present: RRR, no murmurs/rubs/gallops - Abdomen Abdomen: Present: bowel sounds present, soft, non tender - Incision Incision: Present: clean and dry - Labs 12/28/16 06:10 12/28/16 06:10 - VTE Documentation of Mechanical Device: Intermittent pneumatic compression device Consult Discharge Plan - Plan Referrals: Magdiel Marquez MD [Partnered Physician] - 01/08/17 11:30 am
[2016-12-30] MEDS: 0.9 % Sodium Chloride 1,000 ML IVC SCH ×2 (03:13→09:17)
[2016-12-30] MEDS: *HR* Heparin 5,000 UNIT/ML VIAL SQ SCH ×2 (05:23→17:17)
[2016-12-30] MEDS: Insulin LISPRO 300 UNITS/3 ML VIAL SQ SCH ×4 (08:05→21:23)
[2016-12-30] MEDS: *HR* HYDROmorphone (PF) 1 MG/ML SYRINGE IVP PRN ×4 (10:46→20:52)
--- NOTE | 2016-12-30 12:45 | General Surgery Progress Note ---
Date of Encounter: 12/31/16 Time of Encounter: 12:44 - Assessment and Plan (1) Rectal polyp Current Visit: Yes Status: Acute POD #6 Robot assisted sigmoid colectomy with Dr. Marquez Patient is on PO diet. Positive flatus and BMs. (2) Type 2 diabetes mellitus Current Visit: No Status: Chronic Glucose improved Continue low sliding scale insulin coverage Will monitor and adjust as necessary Qualifiers: Diabetes mellitus complication status: without complication Diabetes mellitus alf insulin use: without long term care social worker use Qualified Code(s): E11.9 - Type 2 diabetes mellitus without complications (3) DVT prophylaxis Current Visit: No Status: Acute Heparin 5,000 units SQ twice daily for DVT prophylaxis (4) Cellulitis Current Visit: Yes Status: Acute Noted worsening erythema and drainage in the inferior lower abdominal incision. Will start IV abx and obtain a culture of the drainage. Qualifiers: Site of cellulitis: trunk Site of cellulitis of trunk: abdominal wall Qualified Code(s): L03.311 - Cellulitis of abdominal wall Subjective Patient reports: other (Patient states she has been feeling a little depressed. Positive flatus. Positive bowel moment.) Objective Vital Signs - Last 8 Hours Temp Pulse Resp BP Pulse Ox 12/30/16 11:29 98.7 F 74 16 148/83 97 12/30/16 07:00 98.3 F 73 18 147/77 98 Intake and Output 12/29/16 12/30/16 12/30/16 23:59 07:59 15:59 Intake Total 920 / 920 979 / 979 360 / 360 Output Total 1300 / 1300 800 / 800 0 / 0 Balance -380 / -380 179 / 179 360 / 360 Intake: IV Fluids 200 / 200 579 / 579 0.9 % Sodium Chloride 1, 200 / 200 579 / 579 000 ML @ 75 mls/hr IVC . [id number] [facility] Rx#: [id number] Oral 720 / 720 400 / 400 360 / 360 Output: Urine 1300 / 1300 800 / 800 0 / 0 Other: Meal Breakfast Percent of Meal Consumed 100% # Voids 1 1 Blood Glucose* 153 176 194 - General physical appearance well developed, well nourished - Abdomen Abdomen: Present: bowel sounds present, soft, tender (Mild incisional tenderness. ) - Incision Incision: Present: red (with drainage noted on 4x4 gauze. Blanching erythema.) - Labs 12/28/16 06:10 12/30/16 13:43 - VTE Documentation of Mechanical Device: Intermittent pneumatic compression device Consult Discharge Plan - Plan Referrals: Magdiel Marquez MD [Partnered Physician] - 01/08/17 11:30 am
[2016-12-30 13:59] LABS: eGFR For African Americans > 60 (> 60); eGFR For Non-African Americans > 60 (> 60)
[2016-12-30] MEDS ORDERED: Acetaminophen 325 MG TABLET PO PRN (14:52)
[2016-12-30] MEDS: Vancomycin 2,000 MG in D5% in Water 500 ML IVPB SCH (14:56)
[2016-12-30] MEDS: *HR* Metformin 500 MG TABLET PO SCH (17:17)
[2016-12-30] MEDS: MetroNIDAZOLE 500 MG/100 ML 500 MG/100 ML BAG IVPB SCH (17:17)
[2016-12-30] MEDS ORDERED: Vancomycin 1,000 MG in D5% in Water 250 ML IVPB SCH (18:00)
[2016-12-30] MEDS: *HR* OxyCODONE/APAP 5/325 TABLET PO PRN (20:33)
[2016-12-31] MEDS: MetroNIDAZOLE 500 MG/100 ML 500 MG/100 ML BAG IVPB SCH ×4 (00:26→22:48)
[2016-12-31] MEDS: *HR* HYDROmorphone (PF) 1 MG/ML SYRINGE IVP PRN ×3 (02:51→22:48)
[2016-12-31] MEDS: Vancomycin 2,000 MG in D5% in Water 500 ML IVPB SCH ×3 (02:51→14:00)
[2016-12-31] MEDS: *HR* Heparin 5,000 UNIT/ML VIAL SQ SCH ×2 (05:28→17:24)
[2016-12-31] MEDS: *HR* OxyCODONE/APAP 5/325 TABLET PO PRN ×2 (06:46→13:21)
[2016-12-31] MEDS: *HR* Metformin 500 MG TABLET PO SCH ×2 (07:48→16:37)
[2016-12-31] MEDS: *HR* Pioglitazone 45 MG TABLET PO SCH (07:48)
[2016-12-31] MEDS: rOPINIRole 1 MG TABLET PO SCH (07:49)
[2016-12-31] MEDS: Losartan/HCTZ 50-12.5 TABLET PO SCH (07:49)
[2016-12-31] MEDS: amLODIPine 5 MG TABLET PO SCH (07:49)
[2016-12-31] MEDS: Insulin LISPRO 300 UNITS/3 ML VIAL SQ SCH ×4 (07:55→21:01)
[2016-12-31] MEDS ORDERED: Aminoglycoside Consult 1 EACH MC ONE (08:29)
[2016-12-31] MEDS: Ondansetron 4 MG/2 ML VIAL IVP PRN (09:00)
--- NOTE | 2016-12-31 12:49 | General Surgery Progress Note ---
Date of Encounter: 01/02/17 Time of Encounter: 12:47 - Assessment and Plan (1) Rectal polyp Current Visit: Yes Status: Acute POD #7 Robot assisted sigmoid colectomy with Dr. Marquez Continue with current diet. Positive flatus and BMs. 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 Continue with current IV abx and packing. Await culture results. Qualifiers: Site of cellulitis: trunk Site of cellulitis of trunk: abdominal wall Qualified Code(s): L03.311 - Cellulitis of abdominal wall Subjective Patient reports: no new complaints (Patient states she feels better. Positive BMs and flatus. No nausea.) Objective Vital Signs - Last 8 Hours Temp Pulse Resp BP Pulse Ox 12/31/16 11:55 97.9 F 76 18 143/68 95 12/31/16 07:51 97.6 F 71 18 143/81 97 Intake and Output 12/30/16 12/31/16 12/31/16 23:59 07:59 15:59 Intake Total 600 / 600 600 / 600 220 / 220 Output Total 750 / 750 400 / 400 650 / 650 Balance -150 / -150 200 / 200 -430 / -430 Intake: IV Fluids 600 / 600 600 / 600 100 / 100 Flagyl 500 MG/100 ML 500 100 / 100 100 / 100 100 / 100 mg In 100 ml @ 100 mls/hr IVPB Q8HR [facility] Rx#: [id number] Vancocin 2,000 MG In 500 / 500 500 / 500 Dextrose 5% 500 ML @ 250 mls/hr IVPB Q12H [facility] Rx#: [id number] Oral 0 / 0 120 / 120 Output: Urine 750 / 750 400 / 400 650 / 650 Other: Weight 132 kg Blood Glucose* 128 195 131 Patient Weight 12/31/16 23:59 Weight 132 kg - General physical appearance well developed, well nourished, no distress - Abdomen Abdomen: Present: soft, tender (Mild incisional pain with palpation.) - Incision Incision: Present: red (Noted erythema-improved. Packing in place. ) - Labs 01/01/17 04:48 01/02/17 04:27 Diabetes panel 12/30/16 Range/Units 13:43 Creatinine 0.66 (0.57-1.11) mg/dL Pituitary panel 12/30/16 Range/Units 13:43 Creatinine 0.66 (0.57-1.11) mg/dL Adrenal panel 12/30/16 Range/Units 13:43 Creatinine 0.66 (0.57-1.11) mg/dL - VTE Documentation of Mechanical Device: Intermittent pneumatic compression device Consult Discharge Plan - Plan Referrals: Magdiel Marquez MD [Partnered Physician] - 01/08/17 11:30 am
[2016-12-31] MEDS: Aztreonam 1,000 MG in D5% in Water (Mini-Bag+) 100 ML IVPB SCH ×2 (16:36→23:55)
[2017-01-01] MEDS: *HR* HYDROmorphone (PF) 1 MG/ML SYRINGE IVP PRN ×2 (03:43→11:37)
[2017-01-01 05:15] LABS: Basophils # 0.1 K/mcL (0.0-0.2); Basophils % 0.5 %; Eosinophils # 0.3 K/mcL (0.0-0.6); Eosinophils % 2.8 %; Hematocrit 29.2 % (35.3-44.9); Hemoglobin 9.4 g/dL (11.5-15.4); Immature Granulocytes % 1.2 % (0-4); Lymphocytes # 1.3 K/mcL (0.6-4.6); Lymphocytes % 13.6 %; Mean Corpuscular HGB Conc 32.2 g/dL (31.6-35.5); Mean Corpuscular Hemoglobin 29.3 pg (28.0-33.3); Mean Platelet Volume 9.9 fL (9.4-12.4); Monocytes # 1.4 K/mcL (0.0-1.3); Monocytes % 14.6 %; Neutrophils # 6.3 K/mcL (1.6-8.9); Platelet Count 334 K/mcL (140-400); Red Blood Count 3.21 M/mcL (3.82-4.97); Red Cell Distribution Width 12.6 % (11.5-14.5); Segmented Neutrophils % 67.3 %
[2017-01-01] MEDS: *HR* Heparin 5,000 UNIT/ML VIAL SQ SCH ×2 (05:39→17:29)
[2017-01-01 05:40] LABS: Calcium 8.5 mg/dL (8.6-10.8)
[2017-01-01 05:42] LABS: Potassium 2.5 mEq/L (3.5-4.5)
[2017-01-01] MEDS: MetroNIDAZOLE 500 MG/100 ML 500 MG/100 ML BAG IVPB SCH ×3 (07:25→22:59)
[2017-01-01] MEDS: *HR* Metformin 500 MG TABLET PO SCH ×2 (07:29→16:42)
[2017-01-01] MEDS: *HR* Pioglitazone 45 MG TABLET PO SCH (07:29)
[2017-01-01] MEDS: Losartan/HCTZ 50-12.5 TABLET PO SCH (07:30)
[2017-01-01] MEDS: amLODIPine 5 MG TABLET PO SCH (07:30)
[2017-01-01] MEDS: rOPINIRole 1 MG TABLET PO SCH (07:31)
[2017-01-01] MEDS: *HR* OxyCODONE/APAP 5/325 TABLET PO PRN ×2 (07:31→16:42)
[2017-01-01] MEDS: Insulin LISPRO 300 UNITS/3 ML VIAL SQ SCH ×4 (07:34→20:47)
[2017-01-01] MEDS: Aztreonam 1,000 MG in D5% in Water (Mini-Bag+) 100 ML IVPB SCH ×2 (08:51→17:29)
[2017-01-01] MEDS: Ondansetron 4 MG/2 ML VIAL IVP PRN (11:37)
--- NOTE | 2017-01-01 12:11 | General Surgery Progress Note ---
Date of Encounter: 01/01/17 Time of Encounter: 12:00 - Assessment and Plan (1) Rectal polyp Current Visit: Yes Status: Acute POD #8 Robot assisted sigmoid colectomy with Dr. Marquez Pathology reviewed with patient Diabetic diet Supportive care/pain control Ambulate hallways with assistance IS every 1 hour while awake PPI therapy daily AM labs Daily wound care Cultures- ecoli IV antibiotics- Flagyl and Aztreonam Add stool softner BID (2) Type 2 diabetes mellitus Current Visit: No Status: Chronic Mildly hyperglycemic Increase to medium sliding scale insulin coverage Will monitor and adjust as necessary Qualifiers: Diabetes mellitus complication status: without complication Diabetes mellitus parts counterman insulin use: without detention use Qualified Code(s): E11.9 - Type 2 diabetes mellitus without complications (3) Hypokalemia Current Visit: Yes Status: Acute Replace potassium Repeat am labs (4) Wound, surgical, infected Current Visit: Yes Status: Acute Cultures grew ecoli Daily wound care IV antibiotics- Flagyl and Aztreonam Qualifiers: Encounter type: subsequent encounter Qualified Code(s): T81.4XXD - Infection following a procedure, subsequent encounter (5) Acute kidney injury Current Visit: Yes Status: Acute Cr- 1.36 IV fluids Avoid nephrotoxic medications Repeat am labs (6) DVT prophylaxis Current Visit: No Status: Acute Heparin 5,000 units SQ twice daily for DVT prophylaxis Ambulate in hallways with assistance Subjective Patient reports: no new complaints, feels better, still having pain, pain is less, tolerating a regular diet, voiding w/o difficulty, flatus, no bowel movement (for the past 4 days), afebrile Objective Vital Signs - Last 8 Hours Temp Pulse Resp BP Pulse Ox 01/01/17 11:33 98.2 F 66 18 116/71 94 01/01/17 06:36 97.6 F 64 18 127/65 92 Intake and Output 12/31/16 01/01/17 01/01/17 23:59 07:59 15:59 Intake Total 200 / 200 200 / 200 200 / 200 Output Total 0 / 0 0 / 0 Balance 200 / 200 200 / 200 200 / 200 Intake: IV Fluids 200 / 200 200 / 200 200 / 200 Azactam 1,000 MG In 100 / 100 100 / 100 100 / 100 Dextrose 5% (Minibag+) 100 ML 100 ML @ 200 mls/ hr IVPB Q8H [facility] Rx#: [id number] Flagyl 500 MG/100 ML 500 100 / 100 100 / 100 100 / 100 mg In 100 ml @ 100 mls/hr IVPB Q8HR [facility] Rx#: [id number] Oral 0 / 0 0 / 0 Output: Urine 0 / 0 0 / 0 Other: Meal Breakfast Percent of Meal Consumed 0% # Voids 1 # Bowel Movements 0 0 Blood Glucose* 191 171 130 - General physical appearance well developed, well nourished, no distress, obese - Eyes normal ocular movement - ENT normal mucosa, atraumatic, normocephalic - Neck Neck exam: trachea midline - Respiratory normal respiratory effort, clear to auscultation - Cardiovascular Cardiovascular exam: Present: RRR - Abdomen Abdomen: Present: bowel sounds present, soft, tender (Expected postoperative tenderness), wound (lower abdomen with small amount of purulent drainage noted, erythema improving) - Incision Incision: Present: intact, open (packing noted to lower abdominal incision) - Neurologic CN 2-12 grossly intact - Musculoskeletal normal gait, normal posture - Psychiatric oriented to time, oriented to person, oriented to place, speech is normal, memory intact - Labs 01/01/17 04:48 01/01/17 04:48 Diabetes panel 01/01/17 Range/Units 04:48 Sodium 136 (136-145) mEq/L Potassium 2.5 L* (3.5-4.5) mEq/L Chloride 98 (98-109) mEq/L Carbon Dioxide 29 (19-29) mEq/L BUN 6 L (7-20) mg/dL Creatinine 1.36 H D (0.57-1.11) mg/dL Glucose 165 H (70-99) mg/dL Calcium 8.5 L (8.6-10.8) mg/dL Calcium panel 01/01/17 Range/Units 04:48 Calcium 8.5 L (8.6-10.8) mg/dL Pituitary panel 01/01/17 Range/Units 04:48 Sodium 136 (136-145) mEq/L Potassium 2.5 L* (3.5-4.5) mEq/L Chloride 98 (98-109) mEq/L Carbon Dioxide 29 (19-29) mEq/L BUN 6 L (7-20) mg/dL Creatinine 1.36 H D (0.57-1.11) mg/dL Glucose 165 H (70-99) mg/dL Calcium 8.5 L (8.6-10.8) mg/dL Adrenal panel 01/01/17 Range/Units 04:48 Sodium 136 (136-145) mEq/L Potassium 2.5 L* (3.5-4.5) mEq/L Chloride 98 (98-109) mEq/L Carbon Dioxide 29 (19-29) mEq/L BUN 6 L (7-20) mg/dL Creatinine 1.36 H D (0.57-1.11) mg/dL Glucose 165 H (70-99) mg/dL Calcium 8.5 L (8.6-10.8) mg/dL - VTE Documentation of Mechanical Device: Intermittent pneumatic compression device Consult Discharge Plan - Plan Referrals: Mgadiel Marquez MD [Partnered Physician] - 01/08/17 11:30 am - Attending Attestation I examined this patient and my medical decision-making was reviewed with the EXTRACTOR OPERATOR SOLVENT PROCESS/PA/Advanced Practice Nurse/Resident Physician. I agree with the documented findings, disposition and treatment plan as described except to the extent set forth below. Overall the patient's wound seems to be improving with IV antibiotics. Reddening has increased 1.36 and I agree with starting IV fluid and monitor creatinine level to ensure improvement. Also noted hypokalemia that was placed. Will repeat BMP in a.m. and continue with dressing change at this time.
[2017-01-01] MEDS: Docusate Oral Soln 100 MG/10 ML UDC PO SCH ×2 (13:01→20:46)
[2017-01-01] MEDS: 0.9 % Sodium Chloride 1,000 ML IVC SCH (13:01)
[2017-01-02] MEDS: Aztreonam 1,000 MG in D5% in Water (Mini-Bag+) 100 ML IVPB SCH ×3 (00:07→17:47)
[2017-01-02] MEDS: 0.9 % Sodium Chloride 1,000 ML IVC SCH ×2 (01:36→12:51)
[2017-01-02] MEDS: *HR* OxyCODONE/APAP 5/325 TABLET PO PRN ×3 (05:08→21:19)
[2017-01-02] MEDS: Ondansetron 4 MG/2 ML VIAL IVP PRN ×3 (05:08→21:27)
[2017-01-02] MEDS: *HR* Heparin 5,000 UNIT/ML VIAL SQ SCH ×2 (05:09→21:12)
[2017-01-02 05:30] LABS: Calcium 8.6 mg/dL (8.6-10.8); Potassium 2.9 mEq/L (3.5-4.5)
[2017-01-02] MEDS: rOPINIRole 1 MG TABLET PO SCH (08:27)
[2017-01-02] MEDS: amLODIPine 5 MG TABLET PO SCH (08:27)
[2017-01-02] MEDS: *HR* Metformin 500 MG TABLET PO SCH ×2 (08:27→17:46)
[2017-01-02] MEDS: Losartan/HCTZ 50-12.5 TABLET PO SCH (08:28)
[2017-01-02] MEDS: Docusate Oral Soln 100 MG/10 ML UDC PO SCH ×2 (08:29→21:16)
[2017-01-02] MEDS: *HR* Pioglitazone 45 MG TABLET PO SCH (08:29)
[2017-01-02] MEDS: MetroNIDAZOLE 500 MG/100 ML 500 MG/100 ML BAG IVPB SCH ×3 (08:30→23:48)
[2017-01-02] MEDS: Insulin LISPRO 300 UNITS/3 ML VIAL SQ SCH ×4 (08:38→21:17)
--- NOTE | 2017-01-02 15:49 | General Surgery Progress Note ---
Date of Encounter: 01/02/17 Time of Encounter: 15:47 - Assessment and Plan (1) Rectal polyp Current Visit: Yes Status: Acute POD #9 Robot assisted sigmoid colectomy with Dr. Marquez Pathology reviewed with patient Diabetic diet Supportive care/pain control Ambulate hallways with assistance IS every 1 hour while awake PPI therapy daily AM labs Daily wound care Cultures- ecoli IV antibiotics- Flagyl and Aztreonam stool softner BID (2) Type 2 diabetes mellitus Current Visit: No Status: Chronic Improved Increase to medium sliding scale insulin coverage Will monitor and adjust as necessary Qualifiers: Diabetes mellitus complication status: without complication Diabetes mellitus watermelon inspector insulin use: without residential use Qualified Code(s): E11.9 - Type 2 diabetes mellitus without complications (3) Hypokalemia Current Visit: Yes Status: Acute Replace potassium Repeat am labs (4) Wound, surgical, infected Current Visit: Yes Status: Acute Cultures grew ecoli Daily wound care IV antibiotics- Flagyl and Aztreonam Qualifiers: Encounter type: subsequent encounter Qualified Code(s): T81.4XXD - Infection following a procedure, subsequent encounter (5) Acute kidney injury Current Visit: Yes Status: Acute Cr- 1.36>1.42 IV fluids Avoid nephrotoxic medications Repeat am labs (6) DVT prophylaxis Current Visit: No Status: Acute Heparin 5,000 units SQ twice daily for DVT prophylaxis Ambulate in hallways with assistance Subjective Patient reports: no new complaints, feels better, still having pain, pain is less, tolerating a regular diet, voiding w/o difficulty, flatus, bowel movement (X2), afebrile Objective Vital Signs - Last 8 Hours Temp Pulse Resp BP Pulse Ox 01/02/17 14:53 98.1 F 70 18 130/74 92 01/02/17 11:39 97.9 F 69 19 164/80 95 Intake and Output 01/01/17 01/02/17 01/02/17 23:59 07:59 15:59 Intake Total 900 / 900 1200 / 1200 1820 / 1820 Output Total 500 / 500 300 / 300 1550 / 1550 Balance 400 / 400 900 / 900 270 / 270 Intake: IV Fluids 900 / 900 200 / 200 1200 / 1200 0.9 % Sodium Chloride 1, 700 / 700 1000 / 1000 000 ML @ 100 mls/hr IVC . Q10H [facility] Rx#:[id number] Azactam 1,000 MG In 100 / 100 100 / 100 100 / 100 Dextrose 5% (Minibag+) 100 ML 100 ML @ 200 mls/ hr IVPB Q8H [facility] Rx#: [id number] Flagyl 500 MG/100 ML 500 100 / 100 100 / 100 100 / 100 mg In 100 ml @ 100 mls/hr IVPB Q8HR [facility] Rx#: [id number] Oral 1000 / 1000 620 / 620 Output: Urine 500 / 500 0 / 0 1550 / 1550 Urine/Stool Mix 300 / 300 Other: Meal Lunch Percent of Meal Consumed 0% Stool Size Large Stool Consistency liquid Stool Color Brown # Voids 1 # Bowel Movements 0 1 Weight 131.5 kg Blood Glucose* 138 138 157 Patient Weight 01/02/17 23:59 Weight 131.5 kg - General physical appearance well developed, well nourished, no distress, obese - Eyes normal ocular movement - ENT normal mucosa, atraumatic, normocephalic - Neck Neck exam: trachea midline - Respiratory normal respiratory effort, clear to auscultation - Cardiovascular Cardiovascular exam: Present: RRR - Abdomen Abdomen: Present: bowel sounds present, soft, tender (expected post-operative tenderness ), wound (Lower abdomen- moderate amount of purulent drainage noted with skin necrosis, erythema improved) - Incision Incision: Present: open (Lower abdomen- moderate amount of purulent drainage noted with skin necrosis, erythema improved) - Neurologic CN 2-12 grossly intact - Musculoskeletal normal gait, normal posture - Psychiatric oriented to time, oriented to person, oriented to place, speech is normal, memory intact - Labs 01/01/17 04:48 01/02/17 04:27 Diabetes panel 01/02/17 Range/Units 04:27 Sodium 139 (136-145) mEq/L Potassium 2.9 L (3.5-4.5) mEq/L Chloride 101 (98-109) mEq/L Carbon Dioxide 26 (19-29) mEq/L BUN 8 (7-20) mg/dL Creatinine 1.42 H (0.57-1.11) mg/dL Glucose 150 H (70-99) mg/dL Calcium 8.6 (8.6-10.8) mg/dL Calcium panel 01/02/17 Range/Units 04:27 Calcium 8.6 (8.6-10.8) mg/dL Pituitary panel 01/02/17 Range/Units 04:27 Sodium 139 (136-145) mEq/L Potassium 2.9 L (3.5-4.5) mEq/L Chloride 101 (98-109) mEq/L Carbon Dioxide 26 (19-29) mEq/L BUN 8 (7-20) mg/dL Creatinine 1.42 H (0.57-1.11) mg/dL Glucose 150 H (70-99) mg/dL Calcium 8.6 (8.6-10.8) mg/dL Adrenal panel 01/02/17 Range/Units 04:27 Sodium 139 (136-145) mEq/L Potassium 2.9 L (3.5-4.5) mEq/L Chloride 101 (98-109) mEq/L Carbon Dioxide 26 (19-29) mEq/L BUN 8 (7-20) mg/dL Creatinine 1.42 H (0.57-1.11) mg/dL Glucose 150 H (70-99) mg/dL Calcium 8.6 (8.6-10.8) mg/dL - VTE Documentation of Mechanical Device: Intermittent pneumatic compression device Consult Discharge Plan - Plan Referrals: Magdiel Marquez MD [Partnered Physician] - 01/08/17 11:30 am - Attending Attestation I examined this patient and my medical decision-making was reviewed with the MEDICAL DOCTOR NUCLEAR MEDICINE/PA/Advanced Practice Nurse/Resident Physician. I agree with the documented findings, disposition and treatment plan as described except to the extent set forth below. The patient's creatinine of 1.42. Also hypokalemia still present. Agree with potassium replacement and continue to monitor creatinine level. Continue with IV antibiotics as well and dressing changes.
[2017-01-02 19:13] LABS: Calcium 8.6 mg/dL (8.6-10.8); Potassium 3.6 mEq/L (3.5-4.5)
[2017-01-03] MEDS: Aztreonam 1,000 MG in D5% in Water (Mini-Bag+) 100 ML IVPB SCH ×2 (00:52→08:43)
[2017-01-03] MEDS: *HR* Heparin 5,000 UNIT/ML VIAL SQ SCH ×2 (06:06→16:40)
[2017-01-03 06:14] LABS: Basophils # 0.1 K/mcL (0.0-0.2); Basophils % 0.7 %; Eosinophils # 0.2 K/mcL (0.0-0.6); Eosinophils % 1.6 %; Hematocrit 31.5 % (35.3-44.9); Hemoglobin 9.9 g/dL (11.5-15.4); Lymphocytes # 1.7 K/mcL (0.6-4.6); Lymphocytes % 14.3 %; Mean Corpuscular HGB Conc 31.4 g/dL (31.6-35.5); Mean Corpuscular Hemoglobin 29.4 pg (28.0-33.3); Mean Corpuscular Volume 93.5 fL (83.0-100.0); Mean Platelet Volume 9.9 fL (9.4-12.4); Monocytes # 1.3 K/mcL (0.0-1.3); Monocytes % 11.5 %; Platelet Count 369 K/mcL (140-400); Red Blood Count 3.37 M/mcL (3.82-4.97); Red Cell Distribution Width 13.1 % (11.5-14.5); Segmented Neutrophils % 68.9 %
[2017-01-03 06:31] LABS: Calcium 8.4 mg/dL (8.6-10.8); Potassium 3.5 mEq/L (3.5-4.5)
[2017-01-03] MEDS: 0.9 % Sodium Chloride 1,000 ML IVC SCH ×3 (08:32→22:39)
[2017-01-03] MEDS: Insulin LISPRO 300 UNITS/3 ML VIAL SQ SCH ×4 (08:33→20:34)
[2017-01-03] MEDS: MetroNIDAZOLE 500 MG/100 ML 500 MG/100 ML BAG IVPB SCH ×2 (08:34→16:40)
[2017-01-03] MEDS: Docusate Oral Soln 100 MG/10 ML UDC PO SCH ×2 (08:39→20:27)
[2017-01-03] MEDS: rOPINIRole 1 MG TABLET PO SCH (08:41)
[2017-01-03] MEDS: *HR* Pioglitazone 45 MG TABLET PO SCH (08:41)
[2017-01-03] MEDS: amLODIPine 5 MG TABLET PO SCH (08:41)
[2017-01-03] MEDS: Losartan/HCTZ 50-12.5 TABLET PO SCH (08:41)
[2017-01-03] MEDS: *HR* Metformin 500 MG TABLET PO SCH ×2 (08:41→16:40)
--- NOTE | 2017-01-03 09:45 | General Surgery Progress Note ---
Date of Encounter: 01/03/17 Time of Encounter: 09:00 - Assessment and Plan (1) Rectal polyp Current Visit: Yes Status: Acute POD #10 Robot assisted sigmoid colectomy with Dr. Marquez Pathology reviewed with patient Diabetic diet Supportive care/pain control Ambulate hallways with assistance IS every 1 hour while awake PPI therapy daily AM labs Daily wound care- changed to Mesalt ribbon and will apply Maxorb AG to skin ( see orders) CT abdomen/pelvis without contrast today Cultures- ecoli (discussing with pharmacy and change in antibiotics) IV antibiotics- Flagyl and Aztreonam stool softner BID (2) Type 2 diabetes mellitus Current Visit: No Status: Chronic Stable Continue medium sliding scale insulin coverage Will monitor and adjust as necessary Qualifiers: Diabetes mellitus complication status: without complication Diabetes mellitus fci insulin use: without intermediate school teacher use Qualified Code(s): E11.9 - Type 2 diabetes mellitus without complications (3) Hypokalemia Current Visit: Yes Status: Resolved Repeat am labs (4) Wound, surgical, infected Current Visit: Yes Status: Acute Cultures grew ecoli- discussing change in antibiotics with pharmacy (increased cellulitis) CT of abdomen/pelvis with contrast today Daily wound care- Mesalt ribbon and Maxorb AG (see orders) IV antibiotics- Flagyl and Aztreonam Qualifiers: Encounter type: subsequent encounter Qualified Code(s): T81.4XXD - Infection following a procedure, subsequent encounter (5) Acute kidney injury Current Visit: Yes Status: Acute Improved Cr- 1.36>1.42>1.29 IV fluids- decreased to 75ml/hour Avoid nephrotoxic medications Repeat am labs (6) DVT prophylaxis Current Visit: No Status: Acute Heparin 5,000 units SQ twice daily for DVT prophylaxis Ambulate in hallways with assistance Subjective Patient reports: still having pain (complaint of increasing pain across lower abdomen), tolerating a regular diet, voiding w/o difficulty, flatus, bowel movement, afebrile Objective Vital Signs - Last 8 Hours Temp Pulse Resp BP Pulse Ox 01/03/17 08:25 98.0 F 71 18 142/68 94 01/03/17 04:01 98.3 F 72 14 158/74 95 Intake and Output 01/02/17 01/03/17 01/03/17 23:59 07:59 15:59 Intake Total 460 / 460 200 / 200 0 / 0 Output Total 0 / 0 0 / 0 Balance 460 / 460 200 / 200 0 / 0 Intake: IV Fluids 100 / 100 200 / 200 Azactam 1,000 MG In 100 / 100 100 / 100 Dextrose 5% (Minibag+) 100 ML 100 ML @ 200 mls/ hr IVPB Q8H [facility] Rx#: [id number] Flagyl 500 MG/100 ML 500 0 / 0 100 / 100 mg In 100 ml @ 100 mls/hr IVPB Q8HR [facility] Rx#: [id number] Oral 360 / 360 0 / 0 0 / 0 Output: Urine 0 / 0 0 / 0 Other: Meal Dinner Percent of Meal Consumed 25% Stool Size Large Stool Consistency loose liquid soft Stool Color Brown Yellow # Voids 1 3 2 # Bowel Movements 1 2 Weight 131.6 kg Blood Glucose* 135 130 Patient Weight 01/03/17 23:59 Weight 131.6 kg - General physical appearance well developed, well nourished, moderate pain, obese - Eyes normal ocular movement - ENT normal mucosa, atraumatic, normocephalic - Neck Neck exam: trachea midline - Respiratory normal respiratory effort, clear to auscultation - Cardiovascular Cardiovascular exam: Present: RRR - Abdomen Abdomen: Present: bowel sounds present, soft, tender (increased tenderness across lower abdomen), wound (Lower abdominal incision with moderate amount of purulent drainage noted, increasing erythema, tender to examination, skin necrosis noted) - Incision Incision: Present: open (Lower abdominal incision with moderate amount of purulent drainage noted, increasing erythema, tender to examination, skin necrosis noted) - Neurologic CN 2-12 grossly intact - Musculoskeletal normal gait, normal posture - Psychiatric oriented to time, oriented to person, oriented to place, speech is normal, memory intact - Labs 01/03/17 05:33 01/03/17 05:33 Diabetes panel 01/02/17 01/03/17 Range/Units 18:23 05:33 Sodium 140 141 (136-145) mEq/L Potassium 3.6 3.5 (3.5-4.5) mEq/L Chloride 103 103 (98-109) mEq/L Carbon Dioxide 26 29 (19-29) mEq/L BUN 7 7 (7-20) mg/dL Creatinine 1.41 H 1.29 H (0.57-1.11) mg/dL Glucose 143 H 142 H (70-99) mg/dL Calcium 8.6 8.4 L (8.6-10.8) mg/dL Calcium panel 01/02/17 01/03/17 Range/Units 18:23 05:33 Calcium 8.6 8.4 L (8.6-10.8) mg/dL Pituitary panel 01/02/17 01/03/17 Range/Units 18:23 05:33 Sodium 140 141 (136-145) mEq/L Potassium 3.6 3.5 (3.5-4.5) mEq/L Chloride 103 103 (98-109) mEq/L Carbon Dioxide 26 29 (19-29) mEq/L BUN 7 7 (7-20) mg/dL Creatinine 1.41 H 1.29 H (0.57-1.11) mg/dL Glucose 143 H 142 H (70-99) mg/dL Calcium 8.6 8.4 L (8.6-10.8) mg/dL Adrenal panel 01/02/17 01/03/17 Range/Units 18:23 05:33 Sodium 140 141 (136-145) mEq/L Potassium 3.6 3.5 (3.5-4.5) mEq/L Chloride 103 103 (98-109) mEq/L Carbon Dioxide 26 29 (19-29) mEq/L BUN 7 7 (7-20) mg/dL Creatinine 1.41 H 1.29 H (0.57-1.11) mg/dL Glucose 143 H 142 H (70-99) mg/dL Calcium 8.6 8.4 L (8.6-10.8) mg/dL - VTE Documentation of Mechanical Device: Graduated compression elastic hosiery Consult Discharge Plan - Plan Referrals: Magdiel Marquez MD [Partnered Physician] - 01/08/17 11:30 am - Attending Attestation I examined this patient and my medical decision-making was reviewed with the ROBOTIC MACHINE OPERATOR/PA/Advanced Practice Nurse/Resident Physician. I agree with the documented findings, disposition and treatment plan as described except to the extent set forth below. I reviewed the above evaluation and plan and was present with the SENIOR COGNOS DEVELOPER during the physical examination. I agree with the above assessment and plan.
[2017-01-03] MEDS: Ertapenem 1,000 MG in 0.9 % Sodium Chloride Mini Bag 100 ML IVPB SCH (12:14)
[2017-01-03] MEDS: *HR* HYDROmorphone (PF) 1 MG/ML SYRINGE IVP PRN (12:15)
[2017-01-03] MEDS: Ondansetron 4 MG/2 ML VIAL IVP PRN ×2 (12:22→20:31)
[2017-01-04] MEDS: MetroNIDAZOLE 500 MG/100 ML 500 MG/100 ML BAG IVPB SCH ×4 (00:15→23:18)
[2017-01-04] MEDS: 0.9 % Sodium Chloride 1,000 ML IVC SCH ×2 (00:17→15:53)
[2017-01-04 04:08] LABS: Basophils # 0.1 K/mcL (0.0-0.2); Basophils % 0.6 %; Eosinophils # 0.2 K/mcL (0.0-0.6); Eosinophils % 1.2 %; Hematocrit 30.6 % (35.3-44.9); Immature Granulocytes % 3.9 % (0-4); Immature Platelets 3.4 % (1.1-6.1); Lymphocytes # 1.6 K/mcL (0.6-4.6); Lymphocytes % 12.7 %; Mean Corpuscular HGB Conc 32.7 g/dL (31.6-35.5); Mean Corpuscular Hemoglobin 30.2 pg (28.0-33.3); Mean Corpuscular Volume 92.4 fL (83.0-100.0); Mean Platelet Volume 10.1 fL (9.4-12.4); Monocytes # 1.3 K/mcL (0.0-1.3); Monocytes % 10.5 %; Platelet Count 386 K/mcL (140-400); Red Blood Count 3.31 M/mcL (3.82-4.97); Red Cell Distribution Width 13.2 % (11.5-14.5); Segmented Neutrophils % 71.1 %
[2017-01-04 04:27] LABS: BUN/Creatinine Ratio 4 (6-26); Calcium 8.4 mg/dL (8.6-10.8); Carbon Dioxide 30 mEq/L (19-29); Chloride 99 mEq/L (98-109); Glucose 156 mg/dL (70-99); Osmolality,Calculated 286 (280-300); Potassium 3.1 mEq/L (3.5-4.5); Sodium 138 mEq/L (136-145); eGFR For African Americans > 60 (> 60); eGFR For Non-African Americans 50 (> 60)
[2017-01-04 04:29] LABS: Blood Urea Nitrogen 5 mg/dL (7-20)
[2017-01-04] MEDS: *HR* Heparin 5,000 UNIT/ML VIAL SQ SCH ×2 (05:08→17:16)
[2017-01-04] MEDS: Ertapenem 1,000 MG in 0.9 % Sodium Chloride Mini Bag 100 ML IVPB SCH (08:11)
[2017-01-04] MEDS: *HR* Metformin 500 MG TABLET PO SCH ×2 (08:16→17:16)
[2017-01-04] MEDS: Losartan/HCTZ 50-12.5 TABLET PO SCH (08:16)
[2017-01-04] MEDS: amLODIPine 5 MG TABLET PO SCH (08:18)
[2017-01-04] MEDS: *HR* Pioglitazone 45 MG TABLET PO SCH (08:18)
[2017-01-04] MEDS: Docusate Oral Soln 100 MG/10 ML UDC PO SCH ×2 (08:18→21:01)
[2017-01-04] MEDS: rOPINIRole 1 MG TABLET PO SCH (08:18)
[2017-01-04] MEDS: Insulin LISPRO 300 UNITS/3 ML VIAL SQ SCH ×4 (08:27→20:54)
--- NOTE | 2017-01-04 10:20 | General Surgery Progress Note ---
Date of Encounter: 01/05/17 Time of Encounter: 10:16 - Assessment and Plan (1) Rectal polyp Current Visit: Yes Status: Acute POD #11 Robot assisted sigmoid colectomy with Dr. Marquez Diabetic diet Supportive care/pain control Ambulate hallways with assistance IS every 1 hour while awake PPI therapy daily AM labs Daily wound care- changed to Mesalt ribbon and will apply Maxorb AG to skin. The visualized necrotic skin has "sloughed." Some granualtion tissue noted. WBC mildly elevated at 12.7K. Continue to follow closely. IV antibiotics- Flagyl and Ertapenem stool softner BID (2) Type 2 diabetes mellitus Current Visit: No Status: Chronic Stable Continue medium sliding scale insulin coverage Will monitor and adjust as necessary Qualifiers: Diabetes mellitus complication status: without complication Diabetes mellitus detention insulin use: without detention use Qualified Code(s): E11.9 - Type 2 diabetes mellitus without complications (3) Hypokalemia Current Visit: Yes Status: Resolved K+ 3.1 this am. Creatinine improved to 1.12. Will replace with oral potassium 40meq. Repeat am labs (4) Wound, surgical, infected Current Visit: Yes Status: Acute Cultures grew ecoli. Daily wound care- Mesalt ribbon and Maxorb AG (see orders). Follow closely. IV antibiotics- Flagyl and Ertrapenem. Qualifiers: Encounter type: subsequent encounter Qualified Code(s): T81.4XXD - Infection following a procedure, subsequent encounter (5) Acute kidney injury Current Visit: Yes Status: Acute Improved Cr- 1.12 IV fluids- will continue with 75ml/hour Avoid nephrotoxic medications Repeat am labs (6) DVT prophylaxis Current Visit: No Status: Acute Heparin 5,000 units SQ twice daily for DVT prophylaxis Ambulate in hallways with assistance Subjective Patient reports: other (Patient admits to some lower abdominal pain. No nausea or vomiting. Tolerating PO. Positive BMs. ) Objective Vital Signs - Last 8 Hours Temp Pulse Resp BP Pulse Ox 01/04/17 06:36 97.7 F 71 16 161/79 93 01/04/17 03:55 98.3 F 68 15 153/81 95 Intake and Output 01/03/17 01/04/17 01/04/17 23:59 07:59 15:59 Intake Total 1100 / 1100 100 / 100 240 / 240 Balance 1100 / 1100 100 / 100 240 / 240 Intake: IV Fluids 1100 / 1100 100 / 100 Flagyl 500 MG/100 ML 500 100 / 100 100 / 100 mg In 100 ml @ 100 mls/hr IVPB Q8HR [facility] Rx#: [id number] Oral 0 / 0 240 / 240 Other: Meal Breakfast Percent of Meal Consumed 25% Stool Size Moderate Stool Consistency liquid soft Stool Color Brown # Voids 2 2 # Bowel Movements 1 2 Weight 108.5 kg Blood Glucose* 111 145 Patient Weight 01/04/17 23:59 Weight 108.5 kg - General physical appearance well nourished, no distress - Abdomen Abdomen: Present: bowel sounds present, soft - Incision Incision: Present: draining (Drainage noted on dressing.), red, swollen (Edema noted.), erythema (Noted slight increase in lower abdominal erythema.) - Labs 01/05/17 07:30 01/05/17 07:30 Diabetes panel 01/04/17 Range/Units 03:41 Sodium 138 (136-145) mEq/L Potassium 3.1 L (3.5-4.5) mEq/L Chloride 99 (98-109) mEq/L Carbon Dioxide 30 H (19-29) mEq/L BUN 5 L (7-20) mg/dL Creatinine 1.12 H (0.57-1.11) mg/dL Glucose 156 H (70-99) mg/dL Calcium 8.4 L (8.6-10.8) mg/dL Calcium panel 01/04/17 Range/Units 03:41 Calcium 8.4 L (8.6-10.8) mg/dL Pituitary panel 01/04/17 Range/Units 03:41 Sodium 138 (136-145) mEq/L Potassium 3.1 L (3.5-4.5) mEq/L Chloride 99 (98-109) mEq/L Carbon Dioxide 30 H (19-29) mEq/L BUN 5 L (7-20) mg/dL Creatinine 1.12 H (0.57-1.11) mg/dL Glucose 156 H (70-99) mg/dL Calcium 8.4 L (8.6-10.8) mg/dL Adrenal panel 01/04/17 Range/Units 03:41 Sodium 138 (136-145) mEq/L Potassium 3.1 L (3.5-4.5) mEq/L Chloride 99 (98-109) mEq/L Carbon Dioxide 30 H (19-29) mEq/L BUN 5 L (7-20) mg/dL Creatinine 1.12 H (0.57-1.11) mg/dL Glucose 156 H (70-99) mg/dL Calcium 8.4 L (8.6-10.8) mg/dL - VTE Documentation of Mechanical Device: Graduated compression elastic hosiery Consult Discharge Plan - Plan Referrals: Magdiel Marquez MD [Partnered Physician] - 01/08/17 11:30 am
[2017-01-04] MEDS: *HR* HYDROmorphone (PF) 1 MG/ML SYRINGE IVP PRN (15:45)
[2017-01-05] MEDS: *HR* HYDROmorphone (PF) 1 MG/ML SYRINGE IVP PRN ×2 (00:01→13:56)
[2017-01-05] MEDS: *HR* Heparin 5,000 UNIT/ML VIAL SQ SCH ×2 (05:02→18:00)
[2017-01-05 07:38] LABS: Basophils # 0.1 K/mcL (0.0-0.2); Basophils % 0.8 %; Eosinophils # 0.2 K/mcL (0.0-0.6); Hematocrit 34.2 % (35.3-44.9); Hemoglobin 11.1 g/dL (11.5-15.4); Immature Granulocytes % 4.4 % (0-4); Immature Platelets 3.9 % (1.1-6.1); Lymphocytes # 1.8 K/mcL (0.6-4.6); Lymphocytes % 15.5 %; Mean Corpuscular HGB Conc 32.5 g/dL (31.6-35.5); Mean Corpuscular Hemoglobin 29.8 pg (28.0-33.3); Mean Corpuscular Volume 91.9 fL (83.0-100.0); Mean Platelet Volume 9.6 fL (9.4-12.4); Monocytes # 1.3 K/mcL (0.0-1.3); Monocytes % 11.3 %; Neutrophils # 7.8 K/mcL (1.6-8.9); Platelet Count 434 K/mcL (140-400); Red Blood Count 3.72 M/mcL (3.82-4.97); Red Cell Distribution Width 13.2 % (11.5-14.5)
[2017-01-05 07:50] LABS: BUN/Creatinine Ratio 5 (6-26); Calcium 8.6 mg/dL (8.6-10.8); Carbon Dioxide 28 mEq/L (19-29); Chloride 99 mEq/L (98-109); Glucose 131 mg/dL (70-99); Osmolality,Calculated 289 (280-300); Sodium 140 mEq/L (136-145); eGFR For African Americans > 60 (> 60); eGFR For Non-African Americans 50 (> 60)
[2017-01-05 07:53] LABS: Blood Urea Nitrogen 5 mg/dL (7-20); Potassium 3.4 mEq/L (3.5-4.5)
[2017-01-05] MEDS: 0.9 % Sodium Chloride 1,000 ML IVC SCH (08:17)
[2017-01-05] MEDS: Ertapenem 1,000 MG in 0.9 % Sodium Chloride Mini Bag 100 ML IVPB SCH (08:18)
[2017-01-05] MEDS: MetroNIDAZOLE 500 MG/100 ML 500 MG/100 ML BAG IVPB SCH ×2 (08:18→17:58)
[2017-01-05] MEDS: *HR* Pioglitazone 45 MG TABLET PO SCH (08:19)
[2017-01-05] MEDS: Losartan/HCTZ 50-12.5 TABLET PO SCH (08:19)
[2017-01-05] MEDS: Docusate Oral Soln 100 MG/10 ML UDC PO SCH ×2 (08:20→21:14)
[2017-01-05] MEDS: rOPINIRole 1 MG TABLET PO SCH (08:20)
[2017-01-05] MEDS: amLODIPine 5 MG TABLET PO SCH (08:20)
[2017-01-05] MEDS: *HR* Metformin 500 MG TABLET PO SCH ×2 (08:20→17:58)
[2017-01-05] MEDS: Insulin LISPRO 300 UNITS/3 ML VIAL SQ SCH ×4 (08:23→21:14)
--- NOTE | 2017-01-05 09:43 | General Surgery Progress Note ---
Date of Encounter: 01/05/17 Time of Encounter: 09:41 - Assessment and Plan (1) Rectal polyp Current Visit: Yes Status: Acute POD #12 Robot assisted sigmoid colectomy with Dr. Marquez Diabetic diet Supportive care/pain control Ambulate hallways with assistance IS every 1 hour while awake PPI therapy daily AM labs Daily wound care- changed to Mesalt ribbon and will apply Maxorb AG to skin. More visualized granulation tissue present. Less necrotic tissue evident. IV antibiotics- Flagyl and Ertapenem stool softner BID (2) Type 2 diabetes mellitus Current Visit: No Status: Chronic Stable Continue medium sliding scale insulin coverage Will monitor and adjust as necessary Qualifiers: Diabetes mellitus complication status: without complication Diabetes mellitus senior care insulin use: without intermodal truck driver use Qualified Code(s): E11.9 - Type 2 diabetes mellitus without complications (3) Hypokalemia Current Visit: Yes Status: Resolved K+ 3.2 this am. Creatinine normal at 1.11. Will replace with oral potassium 40meq. Repeat am labs (4) Wound, surgical, infected Current Visit: Yes Status: Acute Cultures grew ecoli. Daily wound care- Wound with less erythema. Noted decrease in WBC. Contiue with Mesalt ribbon and Maxorb AG. Continue to follow closely. IV antibiotics- Flagyl and Ertrapenem. Qualifiers: Encounter type: subsequent encounter Qualified Code(s): T81.4XXD - Infection following a procedure, subsequent encounter (5) Acute kidney injury Current Visit: Yes Status: Acute Improved Cr-now 1.11. Normal. Will stop IVF. Avoid nephrotoxic medications Repeat am labs (6) DVT prophylaxis Current Visit: No Status: Acute Heparin 5,000 units SQ twice daily for DVT prophylaxis Ambulate in hallways with assistance Subjective Patient reports: no new complaints, other (Tolerating PO. Noted lower abdominal pain, controlled with pain medication.) Objective Vital Signs - Last 8 Hours Temp Pulse Resp BP Pulse Ox 01/05/17 07:16 98.0 F 65 14 157/86 96 01/05/17 03:35 97.7 F 63 18 152/78 93 Intake and Output 01/04/17 01/05/17 01/05/17 23:59 07:59 15:59 Intake Total 100 / 100 1200 / 1200 Output Total 350 / 350 Balance 100 / 100 850 / 850 Intake: IV Fluids 100 / 100 1200 / 1200 0.9 % Sodium Chloride 1, 1000 / 1000 000 ML @ 75 mls/hr IVC . [id number] [facility] Rx#: [id number] INVanz 1,000 MG In 0.9 % 100 / 100 Sodium Chloride (Mini-Bag +) 100 ML @ 100 mls/hr IVPB DAILY [facility] Rx#: [id number] Flagyl 500 MG/100 ML 500 100 / 100 100 / 100 mg In 100 ml @ 100 mls/hr IVPB Q8HR [facility] Rx#: [id number] Oral 0 / 0 Output: Urine 350 / 350 Other: Stool Size Small Stool Consistency soft Stool Color Brown # Voids 2 1 Weight 107.5 kg Blood Glucose* 114 131 Patient Weight 01/05/17 23:59 Weight 107.5 kg - General physical appearance well nourished, no distress - Respiratory normal expansion, normal respiratory effort - Abdomen Abdomen: Present: bowel sounds present, soft - Incision Incision: Present: draining (Granulation tissue present. Noted exudate on dressing. Overall improved compared to yesterday.), red, swollen, erythema ( Noted decrease in erythema.) - Labs 01/05/17 07:30 01/05/17 07:30 Diabetes panel 01/05/17 Range/Units 07:30 Sodium 140 (136-145) mEq/L Potassium 3.4 L (3.5-4.5) mEq/L Chloride 99 (98-109) mEq/L Carbon Dioxide 28 (19-29) mEq/L BUN 5 L (7-20) mg/dL Creatinine 1.11 (0.57-1.11) mg/dL Glucose 131 H (70-99) mg/dL Calcium 8.6 (8.6-10.8) mg/dL Calcium panel 01/05/17 Range/Units 07:30 Calcium 8.6 (8.6-10.8) mg/dL Pituitary panel 01/05/17 Range/Units 07:30 Sodium 140 (136-145) mEq/L Potassium 3.4 L (3.5-4.5) mEq/L Chloride 99 (98-109) mEq/L Carbon Dioxide 28 (19-29) mEq/L BUN 5 L (7-20) mg/dL Creatinine 1.11 (0.57-1.11) mg/dL Glucose 131 H (70-99) mg/dL Calcium 8.6 (8.6-10.8) mg/dL Adrenal panel 01/05/17 Range/Units 07:30 Sodium 140 (136-145) mEq/L Potassium 3.4 L (3.5-4.5) mEq/L Chloride 99 (98-109) mEq/L Carbon Dioxide 28 (19-29) mEq/L BUN 5 L (7-20) mg/dL Creatinine 1.11 (0.57-1.11) mg/dL Glucose 131 H (70-99) mg/dL Calcium 8.6 (8.6-10.8) mg/dL - VTE Documentation of Mechanical Device: Intermittent pneumatic compression device Consult Discharge Plan - Plan Referrals: Magdiel Marquez MD [Partnered Physician] - 01/08/17 11:30 am
[2017-01-06] MEDS: MetroNIDAZOLE 500 MG/100 ML 500 MG/100 ML BAG IVPB SCH ×2 (00:12→08:26)
[2017-01-06] MEDS: *HR* OxyCODONE/APAP 5/325 TABLET PO PRN ×3 (00:23→18:15)
[2017-01-06 04:51] LABS: Basophils # 0.1 K/mcL (0.0-0.2); Basophils % 0.8 %; Eosinophils # 0.2 K/mcL (0.0-0.6); Eosinophils % 2.2 %; Hematocrit 30.9 % (35.3-44.9); Hemoglobin 10.1 g/dL (11.5-15.4); Immature Granulocytes % 4.8 % (0-4); Lymphocytes # 2.1 K/mcL (0.6-4.6); Lymphocytes % 20.2 %; Mean Corpuscular HGB Conc 32.7 g/dL (31.6-35.5); Mean Corpuscular Hemoglobin 29.6 pg (28.0-33.3); Mean Corpuscular Volume 90.6 fL (83.0-100.0); Mean Platelet Volume 9.6 fL (9.4-12.4); Monocytes # 1.2 K/mcL (0.0-1.3); Monocytes % 11.5 %; Neutrophils # 6.4 K/mcL (1.6-8.9); Platelet Count 374 K/mcL (140-400); Red Blood Count 3.41 M/mcL (3.82-4.97); Red Cell Distribution Width 13.2 % (11.5-14.5); Segmented Neutrophils % 60.5 %
[2017-01-06 05:05] LABS: BUN/Creatinine Ratio 5 (6-26); Calcium 8.2 mg/dL (8.6-10.8); Carbon Dioxide 32 mEq/L (19-29); Chloride 96 mEq/L (98-109); Glucose 121 mg/dL (70-99); Osmolality,Calculated 285 (280-300); Potassium 2.8 mEq/L (3.5-4.5); Sodium 138 mEq/L (136-145); eGFR For African Americans > 60 (> 60); eGFR For Non-African Americans > 60 (> 60)
[2017-01-06 05:07] LABS: Blood Urea Nitrogen 5 mg/dL (7-20)
[2017-01-06] MEDS: *HR* Heparin 5,000 UNIT/ML VIAL SQ SCH ×2 (05:45→18:13)
[2017-01-06 07:21] LABS: Magnesium 1.3 mg/dL (1.6-2.6); Phosphorous 3.6 mg/dL (2.3-4.7)
--- NOTE | 2017-01-06 08:15 | General Surgery Progress Note ---
Date of Encounter: 01/07/17 Time of Encounter: 08:13 - Assessment and Plan (1) Rectal polyp Current Visit: Yes Status: Acute POD #12 Robot assisted sigmoid colectomy with Dr. Marquez Diabetic diet Supportive care/pain control Ambulate hallways with assistance IS every 1 hour while awake PPI therapy daily AM labs Daily wound care- changed to Mesalt ribbon and will apply Maxorb AG to skin. More visualized granulation tissue present. Less necrotic tissue evident. IV antibiotics- Flagyl and Ertapenem stool softner BID (2) Type 2 diabetes mellitus Current Visit: No Status: Chronic Stable Continue medium sliding scale insulin coverage Will monitor and adjust as necessary Qualifiers: Diabetes mellitus complication status: without complication Diabetes mellitus long-term insulin use: without truck terminal manager use Qualified Code(s): E11.9 - Type 2 diabetes mellitus without complications (3) Hypokalemia Current Visit: Yes Status: Resolved K+ 3.2 this am. Creatinine normal at 1.11. Will replace with oral potassium 40meq. Repeat am labs (4) Wound, surgical, infected Current Visit: Yes Status: Acute Cultures grew ecoli. Daily wound care- Wound with less erythema. Noted decrease in WBC. Contiue with Mesalt ribbon and Maxorb AG. Continue to follow closely. IV antibiotics- Flagyl and Ertrapenem. Qualifiers: Encounter type: subsequent encounter Qualified Code(s): T81.4XXD - Infection following a procedure, subsequent encounter (5) Acute kidney injury Current Visit: Yes Status: Acute Improved Cr-now 1.11. Normal. Will stop IVF. Avoid nephrotoxic medications Repeat am labs (6) DVT prophylaxis Current Visit: No Status: Acute Heparin 5,000 units SQ twice daily for DVT prophylaxis Ambulate in hallways with assistance Subjective Patient reports: feels better (She states that the pain and discomfort is less. She notices less redness in the lower abdomen.) Objective Vital Signs - Last 8 Hours Temp Pulse Resp BP Pulse Ox 01/06/17 06:59 98.3 F 64 18 127/69 94 01/06/17 03:50 98.3 F 67 17 93 Intake and Output 01/05/17 01/06/17 01/06/17 23:59 07:59 15:59 Intake Total 100 / 100 0 / 0 Output Total 400 / 400 Balance 100 / 100 -400 / -400 Intake: IV Fluids 100 / 100 Flagyl 500 MG/100 ML 500 100 / 100 mg In 100 ml @ 100 mls/hr IVPB Q8HR [facility] Rx#: [id number] Oral 0 / 0 Output: Urine 400 / 400 Other: Stool Size Small Stool Consistency soft Stool Color Brown # Voids 3 # Bowel Movements 1 Weight 107.5 kg Blood Glucose* 114 119 Patient Weight 01/06/17 23:59 Weight 107.5 kg - Labs 01/06/17 04:19 01/07/17 05:55 Diabetes panel 01/06/17 Range/Units 04:19 Sodium 138 (136-145) mEq/L Potassium 2.8 L (3.5-4.5) mEq/L Chloride 96 L (98-109) mEq/L Carbon Dioxide 32 H (19-29) mEq/L BUN 5 L (7-20) mg/dL Creatinine 0.95 (0.57-1.11) mg/dL Glucose 121 H (70-99) mg/dL Calcium 8.2 L (8.6-10.8) mg/dL Calcium panel 01/06/17 Range/Units 04:19 Calcium 8.2 L (8.6-10.8) mg/dL Phosphorus 3.6 (2.3-4.7) mg/dL Pituitary panel 01/06/17 Range/Units 04:19 Sodium 138 (136-145) mEq/L Potassium 2.8 L (3.5-4.5) mEq/L Chloride 96 L (98-109) mEq/L Carbon Dioxide 32 H (19-29) mEq/L BUN 5 L (7-20) mg/dL Creatinine 0.95 (0.57-1.11) mg/dL Glucose 121 H (70-99) mg/dL Calcium 8.2 L (8.6-10.8) mg/dL Adrenal panel 01/06/17 Range/Units 04:19 Sodium 138 (136-145) mEq/L Potassium 2.8 L (3.5-4.5) mEq/L Chloride 96 L (98-109) mEq/L Carbon Dioxide 32 H (19-29) mEq/L BUN 5 L (7-20) mg/dL Creatinine 0.95 (0.57-1.11) mg/dL Glucose 121 H (70-99) mg/dL Calcium 8.2 L (8.6-10.8) mg/dL - VTE Documentation of Mechanical Device: Intermittent pneumatic compression device Consult Discharge Plan - Plan Referrals: Magdiel Marquez MD [Partnered Physician] - 01/08/17 11:30 am
[2017-01-06] MEDS: Docusate Oral Soln 100 MG/10 ML UDC PO SCH ×2 (08:24→20:19)
[2017-01-06] MEDS: rOPINIRole 1 MG TABLET PO SCH (08:25)
[2017-01-06] MEDS: *HR* Pioglitazone 45 MG TABLET PO SCH (08:25)
[2017-01-06] MEDS: Losartan/HCTZ 50-12.5 TABLET PO SCH (08:25)
[2017-01-06] MEDS: *HR* Metformin 500 MG TABLET PO SCH ×2 (08:25→16:55)
[2017-01-06] MEDS: amLODIPine 5 MG TABLET PO SCH (08:26)
[2017-01-06] MEDS: Insulin LISPRO 300 UNITS/3 ML VIAL SQ SCH ×4 (08:27→20:19)
[2017-01-06] MEDS: Ertapenem 1,000 MG in 0.9 % Sodium Chloride Mini Bag 100 ML IVPB SCH (10:01)
[2017-01-07] MEDS: *HR* OxyCODONE/APAP 5/325 TABLET PO PRN ×3 (03:30→18:54)
[2017-01-07] MEDS: *HR* Heparin 5,000 UNIT/ML VIAL SQ SCH ×2 (06:11→18:54)
[2017-01-07 06:33] LABS: BUN/Creatinine Ratio 5 (6-26); Calcium 8.4 mg/dL (8.6-10.8); Carbon Dioxide 31 mEq/L (19-29); Chloride 96 mEq/L (98-109); Glucose 135 mg/dL (70-99); Osmolality,Calculated 285 (280-300); Potassium 3.3 mEq/L (3.5-4.5); Sodium 138 mEq/L (136-145); eGFR For African Americans > 60 (> 60); eGFR For Non-African Americans 54 (> 60)
[2017-01-07 06:36] LABS: Blood Urea Nitrogen 5 mg/dL (7-20)
[2017-01-07] MEDS: *HR* Pioglitazone 45 MG TABLET PO SCH (08:00)
[2017-01-07] MEDS: Insulin LISPRO 300 UNITS/3 ML VIAL SQ SCH ×4 (08:00→22:28)
[2017-01-07] MEDS: *HR* Metformin 500 MG TABLET PO SCH ×2 (08:00→16:35)
[2017-01-07] MEDS: Docusate Oral Soln 100 MG/10 ML UDC PO SCH (09:53)
[2017-01-07] MEDS: rOPINIRole 1 MG TABLET PO SCH (09:53)
[2017-01-07] MEDS: amLODIPine 5 MG TABLET PO SCH (09:54)
[2017-01-07] MEDS: Losartan/HCTZ 50-12.5 TABLET PO SCH (09:54)
[2017-01-07] MEDS: Ertapenem 1,000 MG in 0.9 % Sodium Chloride Mini Bag 100 ML IVPB SCH (09:55)
[2017-01-07] MEDS ORDERED: Potassium Chloride 40 MEQ, Lidocaine 1% 2 ML in D5% in Water 500 ML IVPB ONE (11:22)
--- NOTE | 2017-01-07 11:25 | General Surgery Progress Note ---
Date of Encounter: 01/07/17 Time of Encounter: 10:30 - Assessment and Plan (1) Rectal polyp Current Visit: Yes Status: Acute POD #14 Robot assisted sigmoid colectomy with Dr. Marquez Pathology reviewed with patient Diabetic diet Supportive care/pain control Ambulate hallways with assistance IS every 1 hour while awake PPI therapy daily AM labs Daily wound care- changed to Mesalt ribbon and will apply Maxorb AG to skin ( see orders) Added Santyl to lower abdominal wound Cultures- ecoli - cover with ertapenem IV antibiotics- Ertapenem stool softner BID (2) Type 2 diabetes mellitus Current Visit: No Status: Chronic Stable Continue medium sliding scale insulin coverage Will monitor and adjust as necessary Qualifiers: Diabetes mellitus complication status: without complication Diabetes mellitus care home insulin use: without care home use Qualified Code(s): E11.9 - Type 2 diabetes mellitus without complications (3) Hypokalemia Current Visit: Yes Status: Resolved Replace potassium Repeat am labs (4) Wound, surgical, infected Current Visit: Yes Status: Acute Cultures grew ecoli- continue ertapenem Daily wound care- Mesalt ribbon and Maxorb AG (see orders) Santyl added IV antibiotics- Ertapenem Qualifiers: Encounter type: subsequent encounter Qualified Code(s): T81.4XXD - Infection following a procedure, subsequent encounter (5) Acute kidney injury Current Visit: Yes Status: Acute Stable Cr- 0.95>1.04 Avoid nephrotoxic medications Repeat am labs (6) DVT prophylaxis Current Visit: No Status: Acute Heparin 5,000 units SQ twice daily for DVT prophylaxis Ambulate in hallways with assistance Subjective Patient reports: no new complaints, feels better, still having pain, pain is less, tolerating a regular diet, voiding w/o difficulty, flatus, bowel movement , afebrile Objective Vital Signs - Last 8 Hours Temp Pulse Resp BP Pulse Ox 01/07/17 06:48 97.9 F 72 16 132/77 94 01/07/17 03:26 98.1 F 71 16 162/79 93 Intake and Output 01/06/17 01/07/17 01/07/17 23:59 07:59 15:59 Intake Total 200 / 200 360 / 360 Output Total 1100 / 1100 1200 / 1200 Balance -900 / -900 -1200 / -1200 360 / 360 Intake: IV Fluids 200 / 200 Potassium Chloride 10 mEq 200 / 200 /100mL 10 meq In 100 ml @ 100 mls/hr IVPB Q1H [facility] Rx#:[id number] Oral 360 / 360 Output: Urine 1100 / 1100 0 / 0 Urine/Stool Mix 1200 / 1200 Other: Meal Breakfast Percent of Meal Consumed 75% Weight 108 kg Blood Glucose* 104 Patient Weight 01/07/17 23:59 Weight 108 kg - General physical appearance well developed, well nourished, no distress - Eyes normal ocular movement - ENT normal mucosa, atraumatic, normocephalic - Neck Neck exam: trachea midline - Respiratory normal respiratory effort, clear to auscultation - Cardiovascular Cardiovascular exam: Present: RRR - Abdomen Abdomen: Present: bowel sounds present, soft, tender (expected tenderness), wound (lower abdominal wound open and draining moderate amount of cloudy, yellow drainage, erythema improving, 50% fibrin/50% granulation tissue, tender to examination (improved)) - Incision Incision: Present: open (lower abdominal wound open and draining moderate amount of cloudy, yellow drainage, erythema improving, 50% fibrin/50% granulation tissue, tender to examination (improved)) - Neurologic CN 2-12 grossly intact - Musculoskeletal normal gait, normal posture - Psychiatric oriented to time, oriented to person, oriented to place, speech is normal, memory intact - Labs 01/06/17 04:19 01/07/17 05:55 Diabetes panel 01/07/17 Range/Units 05:55 Sodium 138 (136-145) mEq/L Potassium 3.3 L (3.5-4.5) mEq/L Chloride 96 L (98-109) mEq/L Carbon Dioxide 31 H (19-29) mEq/L BUN 5 L (7-20) mg/dL Creatinine 1.04 (0.57-1.11) mg/dL Glucose 135 H (70-99) mg/dL Calcium 8.4 L (8.6-10.8) mg/dL Calcium panel 01/07/17 Range/Units 05:55 Calcium 8.4 L (8.6-10.8) mg/dL Pituitary panel 01/07/17 Range/Units 05:55 Sodium 138 (136-145) mEq/L Potassium 3.3 L (3.5-4.5) mEq/L Chloride 96 L (98-109) mEq/L Carbon Dioxide 31 H (19-29) mEq/L BUN 5 L (7-20) mg/dL Creatinine 1.04 (0.57-1.11) mg/dL Glucose 135 H (70-99) mg/dL Calcium 8.4 L (8.6-10.8) mg/dL Adrenal panel 01/07/17 Range/Units 05:55 Sodium 138 (136-145) mEq/L Potassium 3.3 L (3.5-4.5) mEq/L Chloride 96 L (98-109) mEq/L Carbon Dioxide 31 H (19-29) mEq/L BUN 5 L (7-20) mg/dL Creatinine 1.04 (0.57-1.11) mg/dL Glucose 135 H (70-99) mg/dL Calcium 8.4 L (8.6-10.8) mg/dL - VTE Documentation of Mechanical Device: Intermittent pneumatic compression device Consult Discharge Plan - Plan Referrals: Magdiel Marquez MD [Partnered Physician] - 01/08/17 11:30 am - Attending Attestation I examined this patient and my medical decision-making was reviewed with the STAND UP FORKLIFT OPERATOR/PA/Advanced Practice Nurse/Resident Physician. I agree with the documented findings, disposition and treatment plan as described except to the extent set forth below. I reviewed the above assessment with the RN [facility]OMEN [facility] and agree with the above assessment and plan.
[2017-01-08] MEDS: *HR* OxyCODONE/APAP 5/325 TABLET PO PRN ×2 (04:12→14:51)
[2017-01-08] MEDS: *HR* Heparin 5,000 UNIT/ML VIAL SQ SCH (05:42)
[2017-01-08 06:02] LABS: Basophils # 0.2 K/mcL (0.0-0.2); Basophils % 1.3 %; Eosinophils # 0.4 K/mcL (0.0-0.6); Eosinophils % 3.3 %; Hematocrit 38.6 % (35.3-44.9); Immature Granulocytes % 4.3 % (0-4); Lymphocytes # 2.7 K/mcL (0.6-4.6); Lymphocytes % 22.9 %; Mean Corpuscular HGB Conc 32.6 g/dL (31.6-35.5); Mean Corpuscular Volume 91.9 fL (83.0-100.0); Mean Platelet Volume 10.1 fL (9.4-12.4); Monocytes # 1.3 K/mcL (0.0-1.3); Monocytes % 10.9 %; Neutrophils # 6.9 K/mcL (1.6-8.9); Platelet Count 503 K/mcL (140-400); Red Cell Distribution Width 13.5 % (11.5-14.5); Segmented Neutrophils % 57.3 %
[2017-01-08 06:07] LABS: Hemoglobin 12.6 g/dL (11.5-15.4)
[2017-01-08 06:16] LABS: BUN/Creatinine Ratio 5 (6-26); Blood Urea Nitrogen 6 mg/dL (7-20); Calcium 9.4 mg/dL (8.6-10.8); Carbon Dioxide 32 mEq/L (19-29); Chloride 96 mEq/L (98-109); Glucose 141 mg/dL (70-99); Osmolality,Calculated 288 (280-300); Sodium 139 mEq/L (136-145); eGFR For African Americans > 60 (> 60); eGFR For Non-African Americans 50 (> 60)
[2017-01-08] MEDS: Insulin LISPRO 300 UNITS/3 ML VIAL SQ SCH ×2 (07:33→11:34)
[2017-01-08] MEDS: Losartan/HCTZ 50-12.5 TABLET PO SCH (08:49)
[2017-01-08] MEDS: *HR* Metformin 500 MG TABLET PO SCH (08:49)
[2017-01-08] MEDS: amLODIPine 5 MG TABLET PO SCH (08:50)
[2017-01-08] MEDS: Ertapenem 1,000 MG in 0.9 % Sodium Chloride Mini Bag 100 ML IVPB SCH (08:50)
[2017-01-08] MEDS: rOPINIRole 1 MG TABLET PO SCH (08:50)
[2017-01-08 10:01] VITALS: BP 126/57
[2017-01-08] MEDS: *HR* Pioglitazone 45 MG TABLET PO SCH (11:04)
--- NOTE | 2017-01-08 11:17 | Discharge Summary ---
Date of Encounter: 01/08/17 Time of Encounter: 11:00 - Discharge Diagnosis (1) Rectal polyp Priority: Primary Status: Resolved (2) Type 2 diabetes mellitus Priority: Secondary Status: Chronic Qualifiers: Diabetes mellitus complication status: without complication Diabetes mellitus prison insulin use: without bed bug exterminator use Qualified Code(s): E11.9 - Type 2 diabetes mellitus without complications (3) Hypokalemia Priority: Secondary Status: Resolved (4) Wound, surgical, infected Priority: Secondary Status: Acute Qualifiers: Encounter type: subsequent encounter Qualified Code(s): T81.4XXD - Infection following a procedure, subsequent encounter (5) Acute kidney injury Priority: Secondary Status: Resolved - Discharge Medications Prescriptions: OxyCODONE/APAP 5/325 [Percocet 5/325 MG] 1 each PO Q6HR PRN #30 tablet PRN Reason: Moderate Pain Amoxicillin/Clavulanate [Augmentin] 875 mg PO BIDWM #20 tablet Collagenase Oint [Santyl] 1 appl TP DAILY #2 tube Home Medications: Albuterol Sulfate [Ventolin Hfa] 2 puff IH Q4H PRN 09/07/16 [History] Amlodipine [Norvasc] 5 mg PO DAILY 09/07/16 [History] Cyclobenzaprine HCl 10 mg PO TID 09/07/16 [History] Losartan/Hydrochlorothiazide [Hyzaar 100-25 Tablet] 1 tab PO DAILY 09/07/16 [ History] Metformin HCl 1,000 mg PO BID 09/07/16 [History] Paroxetine HCl [Paroxetine] 40 mg PO DAILY 09/07/16 [History] Ropinirole [Requip] 1 mg PO DAILY 09/07/16 [History] Ipratropium/Albuterol Neb [Duoneb] 3 ml IH QIDR PRN #120 inhsol 09/12/16 [Rx] Albuterol Neb [Proventil Neb] 2.5 mg IH TID PRN 10/03/16 [History] Cholecalciferol (D-3) [Vitamin D] 1,000 unit PO DAILY 12/24/16 [History] Cyanocobalamin (Vitamin B-12) [Vitamin B-12] 1,000 mcg SL DAILY 12/24/16 [ History] Ibuprofen [Motrin] 600 mg PO TID PRN 12/24/16 [History] Insulin Glargine [Lantus] 60 unit SQ HS 12/24/16 [History] LORazepam [Ativan] 0.5 mg PO Q6H PRN 12/24/16 [History] Nabumetone 750 mg PO BID 12/24/16 [History] Pioglitazone [Actos] 45 mg PO 0800 12/24/16 [History] Vitamin B Complex 1 each PO DAILY 12/24/16 [History] Amoxicillin/Clavulanate [Augmentin] 875 mg PO BIDWM #20 tablet 01/08/17 [Rx] Collagenase Oint [Santyl] 1 appl TP DAILY #2 tube 01/08/17 [Rx] OxyCODONE/APAP 5/325 [Percocet 5/325 MG] 1 each PO Q6HR PRN #30 tablet 01/08/17 [Rx] Allergies/Adverse Reactions: Allergies cephalexin [From Keflex] Adverse Reaction (Verified 12/24/16 07:56) Itching ciprofloxacin [From Cipro] Adverse Reaction (Verified 12/24/16 07:56) Itching gabapentin Adverse Reaction (Verified 12/24/16 07:56) Itching Penicillins Adverse Reaction (Verified 12/24/16 07:56) Difficulty Breathing General Surgery Exam Initial Vital Signs Temp Pulse Resp BP Pulse Ox 98.1 F 72 16 141/74 96 12/24/16 07:00 12/24/16 07:00 12/24/16 07:00 12/24/16 07:00 12/24/16 07:00 - General physical appearance well developed, well nourished, no distress, obese - Eyes normal ocular movement - ENT normal mucosa, atraumatic, normocephalic - Neck trachea midline - Respiratory normal respiratory effort, clear to auscultation - Cardiovascular Cardiovascular exam: Present: RRR - Abdomen Abdomen general surgery: Present: bowel sounds present, soft, tender (Minimal, expected postoperative tenderness), wound (Lower abdominal wound with moderate amount of cloudy, serous drainage noted, the erythema resolved, mildly tender to examination, 50% fibrin tissue/50% granulation tissue) - Incision Incision: Present: open (Lower abdominal wound with moderate amount of cloudy, serous drainage noted, the erythema resolved, mildly tender to examination, 50% fibrin tissue/50% granulation tissue) - Integumentary Integumentary general surgery: Present: warm and dry - Neurologic Present: CN 2-12 grossly intact - Musculoskeletal Present: normal gait, normal posture - Psychiatric Psychiatric general surgery: Present: appropriate, oriented to person, oriented to place, oriented to time, speech is normal, memory intact Date of admission: 12/24/16 14:02 Primary care physician: Sherry Weaver CNP Consults: 12/31/16 14:41 Consult to Invasive Line Access Team [CONS] Routine Reason for Consult: Need IV access Line Type: EPIV Time Notified: 13:30 Call Completed: Yes Discharging clinician: Magdiel Marquez ([facility]) Anticipated date of discharge: 01/08/17 - Patient Status Disposition: Home Health Service Condition: Good Functional capacity at discharge: independent ambulation Overall status at discharge: patient is progressing back to baseline - Discharge Instructions Follow Up With: Magdiel Marquez MD [Partnered Physician] - 01/20/17 3:35 pm (Surgery follow- up) Additional Instructions: #1 may shower, no tub bath for 2 weeks #2 wash incisions with soap and water and pat dry daily #3 no lifting, pushing, pulling more than 15 pounds for the next 4 weeks #4 no driving until off narcotics for 24 hours and able to safely react in the car #5 may climb stairs Wound care: Cleanse lower abdomen with soap and water in the shower daily, pack with Mesalt ribbon, cover with Maxorb AG, cover with ABDs pad and tape to secure daily. May replace Maxorb and ABD dressing as eeded if saturated throughout the day. Apply Santyl nickel thick to surrounding fibrinous tissue daily (around the lower abdominal wound) - Diet and Activity Activity: other (See additional instructions about) Diet: diabetic diet - Hospital Course Hospital course: Ms. Chisholm is a 56 year old female who is status post a robotic-assisted sigmoid resection for an unresectable colon polyp with Dr. Marquez. Her postoperative course has been complicated by a wound infection, acute kidney injury, and electrolyte abnormalities. We did have to open up her lower abdominal incision and started wound care which included packing with Mesalt ribbon and covering with Maxorb with silver. The patient did have a persistent cellulitis despite opening up and draining the area and treating with IV antibiotics. We repeated a CAT scan which shows no evidence of undrained abscess. Her antibiotic selection has been difficult due to her multiple allergies. Her cultures did grow out Escherichia coli and she is currently tolerating ertapenem and her symptoms have significantly improved with this treatment. She is now postoperative day #15 and she is tolerating a regular diet, her vital signs are stable and she is afebrile, her pain is well-controlled, she is ambulating without difficulty. She is having daily bowel movements and her diarrhea has improved with removal of stool softeners. Her potassium level has stabilized and is 4 today. We will begin discharge planning to home with home health care and plan for outpatient follow-up in the next 10-14 days. Pathology results were reviewed with patient during her inpatient stay. - Time Spent with Patient Total time spent providing and/or coordinating discharge services: Greater than 30 minutes Labs on day of discharge: Labs from last 24 hours 01/08/17 01/08/17 01/08/17 07:07 05:29 05:29 WBC 12.0 H RBC 4.20 Hgb 12.6 D Hct 38.6 MCV 91.9 MCH 30.0 MCHC 32.6 RDW 13.5 Plt Count 503 H MPV 10.1 Immature Gran % 4.3 H Seg Neutrophils % 57.3 Lymphocytes % 22.9 Monocytes % 10.9 Eosinophils % 3.3 Basophils % 1.3 Neutrophils # 6.9 Lymphocytes # 2.7 Monocytes # 1.3 Eosinophils # 0.4 Basophils # 0.2 Sodium 139 Potassium 4.0 Chloride 96 L Carbon Dioxide 32 H BUN 6 L Creatinine 1.11 Est GFR ( Amer) > 60 Est GFR (Non-Af Amer) 50 L BUN/Creatinine Ratio 5 L Glucose 141 H POC Glucose 137 H Calculated Osmolality 288 Calcium 9.4 01/07/17 01/07/17 01/07/17 20:20 16:33 12:22 WBC RBC Hgb Hct MCV MCH MCHC RDW Plt Count MPV Immature Gran % Seg Neutrophils % Lymphocytes % Monocytes % Eosinophils % Basophils % Neutrophils # Lymphocytes # Monocytes # Eosinophils # Basophils # Sodium Potassium Chloride Carbon Dioxide BUN Creatinine Est GFR ( Amer) Est GFR (Non-Af Amer) BUN/Creatinine Ratio Glucose POC Glucose 121 H 132 H 115 H Calculated Osmolality Calcium - Impressions ITS Impressions Abdomen/Pelvis CT 01/03/17 09:33 IMPRESSION: Midline pelvic incision is demonstrated with adjacent fatty induration, suggestive of postoperative change or cellulitis, without associated drainable collection. Small foci of extraluminal air are seen within the pelvis, presumably related to resolving postoperative change. Diffuse injection of mesenteric fat can also be postoperative given the recent surgery. Mild thickening is seen of the gallbladder wall. If patient has symptoms referable, developing cholecystitis cannot be excluded, in which case right upper quadrant ultrasound may be helpful for further evaluation. Soft tissue anasarca. Diverticulosis. D/ / Noah Monroe MD / Noah Monroe MD Interpreting Provider: Noah Monroe MD - Attending Attestation I examined this patient and my medical decision-making was reviewed with the ONLINE COMMUNICATIONS SPECIALIST/PA/Advanced Practice Nurse/Resident Physician. I agree with the documented findings, disposition and treatment plan as described except to the extent set forth below.
--- NOTE | 2017-01-08 11:40 | Physician Discharge Referral ---
Home Health/Hosp Referral Info Transfer to: Home Health Attending Provider: Dr. Magdiel Marquez Provider in Charge Post Discharge: Other (Dr. Marquez and PCP) - Diagnosis (1) Rectal polyp Priority: Primary Status: Resolved (2) Type 2 diabetes mellitus Priority: Secondary Status: Chronic (3) Hypokalemia Priority: Secondary Status: Resolved (4) Wound, surgical, infected Priority: Secondary Status: Acute (5) Acute kidney injury Priority: Secondary Status: Resolved - Respiratory Orders None - Dressing/Wound Care Site: Lower abdomen open wound Type of Dressing/Treatments w/Frequency: Wound care: Cleanse lower abdomen with soap and water in the shower daily, pack with Mesalt ribbon, cover with Maxorb AG, cover with ABDs pad and tape to secure daily. May replace Maxorb and ABD dressing as eeded if saturated throughout the day. Apply Santyl nickel thick to surrounding fibrinous tissue daily (around the lower abdominal wound) - Diet/Nutrition Diet/Nutrition Orders: Regular (Diabetic diet) - Activity Activity Orders: Up ad marie, Ambulate - Services Needed Following services are medically necessary services: Intermediate Care Orders: #1 may shower, no tub bath for 2 weeks #2 wash incisions with soap and water and pat dry daily #3 no lifting, pushing, pulling more than 15 pounds for the next 4 weeks #4 no driving until off narcotics for 24 hours and able to safely react in the car #5 may climb stairs Wound care: Cleanse lower abdomen with soap and water in the shower daily, pack with Mesalt ribbon, cover with Maxorb AG, cover with ABDs pad and tape to secure daily. May replace Maxorb and ABD dressing as eeded if saturated throughout the day. Apply Santyl nickel thick to surrounding fibrinous tissue daily (around the lower abdominal wound) - Transfer Medications Prescriptions: OxyCODONE/APAP 5/325 [Percocet 5/325 MG] 1 each PO Q6HR PRN #30 tablet PRN Reason: Moderate Pain Amoxicillin/Clavulanate [Augmentin] 875 mg PO BIDWM #20 tablet Collagenase Oint [Santyl] 1 appl TP DAILY #2 tube Home Medications: Albuterol Sulfate [Ventolin Hfa] 2 puff IH Q4H PRN 09/07/16 [History] Amlodipine [Norvasc] 5 mg PO DAILY 09/07/16 [History] Cyclobenzaprine HCl 10 mg PO TID 09/07/16 [History] Losartan/Hydrochlorothiazide [Hyzaar 100-25 Tablet] 1 tab PO DAILY 09/07/16 [ History] Metformin HCl 1,000 mg PO BID 09/07/16 [History] Paroxetine HCl [Paroxetine] 40 mg PO DAILY 09/07/16 [History] Ropinirole [Requip] 1 mg PO DAILY 09/07/16 [History] Ipratropium/Albuterol Neb [Duoneb] 3 ml IH QIDR PRN #120 inhsol 09/12/16 [Rx] Albuterol Neb [Proventil Neb] 2.5 mg IH TID PRN 10/03/16 [History] Cholecalciferol (D-3) [Vitamin D] 1,000 unit PO DAILY 12/24/16 [History] Cyanocobalamin (Vitamin B-12) [Vitamin B-12] 1,000 mcg SL DAILY 12/24/16 [ History] Ibuprofen [Motrin] 600 mg PO TID PRN 12/24/16 [History] Insulin Glargine [Lantus] 60 unit SQ HS 12/24/16 [History] LORazepam [Ativan] 0.5 mg PO Q6H PRN 12/24/16 [History] Nabumetone 750 mg PO BID 12/24/16 [History] Pioglitazone [Actos] 45 mg PO 0800 12/24/16 [History] Vitamin B Complex 1 each PO DAILY 12/24/16 [History] Amoxicillin/Clavulanate [Augmentin] 875 mg PO BIDWM #20 tablet 01/08/17 [Rx] Collagenase Oint [Santyl] 1 appl TP DAILY #2 tube 01/08/17 [Rx] OxyCODONE/APAP 5/325 [Percocet 5/325 MG] 1 each PO Q6HR PRN #30 tablet 01/08/17 [Rx] Allergies/Adverse Reactions: Allergies cephalexin [From Keflex] Adverse Reaction (Verified 12/24/16 07:56) Itching ciprofloxacin [From Cipro] Adverse Reaction (Verified 12/24/16 07:56) Itching gabapentin Adverse Reaction (Verified 12/24/16 07:56) Itching Penicillins Adverse Reaction (Verified 04/18/17 07:56) Difficulty Breathing Certification: Further, I certify that my clinical findings support that this patient is homebound (i.e. absences from home require considerable and taxing effort and are for medical reasons or confucianism services or infrequently or short duration when for other reasons) because: Homebound Reason: Patient requires assistance of a person or device to safely leave home, Leaving home requires considerable and taxing effort due to condition Attestation: My signature below is to certify that this patient is under my care and that I, or nurse practitioner, or a physician's assistant curator working with me, has a face-to -face encounter with this patient.
== END 2017-01-08 15:02 | disposition home health service (06) | DRG 330 ==
LOC: SAMDAY 06:31 → 3ANU 14:02
PROVIDERS: ADMIT Surgery; ATTEND Surgery